=== PATIENT | female | born 1955 | race Caucasian/White ===

== ENCOUNTER → 2017-05-22 | Outpatient (REF) | payer MEDICARE, BC, OTHER ==
[2016-08-10 12:23] VITALS: BMI 18.0
[~2017-05-22] MED LIST: ACYC-50 PO; ALB0.5 INH; ALBU2.5V36 INH; AMOX775T5; AUG875 PO; BACL-1 PO; BUDE10.2 INH; CALC500T6 PO; CEFT1VIA57 IV; CHOL200074 PO; CODEINE PO; CYC10 PO; CYCL10TA29 PO; DEXA0.5E5 PO; DIA10 PO; DIA5 PO; DIAZ-308 PO; DUL30 PO; FAMO-67 PO; FENT-23 TD; FLUT16SP19 NS; GUAI1200 PO; GUALA600 PO; HYDR-3102 PO; HYDR-3724 PO; HYDR-393 PO; LACT10SO82 PO; LOR1 PO; LOR5/325 PO; LORA-1456 PO; MAGN100T PO; MEC25 PO; METH4TAB66 PO; MONT10TA PO; MULT1TAB54 PO; NAP250 PO; NAPR-723 PO; NAPR220C12 PO; NICO1PAT86 TD; NITR-105 PO; OXYC-823 PO; OXYC-827 PO; OXYC-865 PO; OXYC-869 PO; OXYC10TA67 PO; OXYC20TA99 PO; OXYC60TA PO; PER; PER PO; PHEN120S16 PO; PILO5TAB12 PO; PRED20TA6 PO; PROM-110 PO; SACC250C PO; SCOT TD; SULF-198 PO; TRAM-420 PO; TRIA15OI20 TP; VAR1 PO; VITA-324 PO; ZOLP-350 PO; [UNRECOGNIZED DRUG - CODE] PO; lidocaine patches
[2017-05-22 17:43] LABS: PLATELET COUNT, AUTOMATED 284 K/uL (150-450)
== END ==
LOC: ZZSENDIN 16:53
PROVIDERS: ATTEND Internal Medicine Infectious Disease
DX: T84.63XA Infection and inflammatory reaction due to internal fixation device of spine, initial encounter (principal)
CPT/HCPCS: 82040; 82247; 82310; 82374; 82435; 82565; 82947; 84075; 84132; 84155; 84295; 84450; 84460; 84520; 85025; 85651; 86140

== ENCOUNTER → 2017-05-25 | Outpatient (CLI) | payer MEDICARE, BC ==
[2016-08-10 12:23] VITALS: BMI 18.0
== END ==
LOC: LAB 15:57
PROVIDERS: ATTEND Emergency Medicine
DX: M85.80 Other specified disorders of bone density and structure, unspecified site (principal); E78.00 Pure hypercholesterolemia, unspecified
CPT/HCPCS: 36415; 82306; 82310; 82465; 83718; 83970; 84478

== ENCOUNTER → 2017-05-26 | Outpatient (REF) | payer MEDICARE, BC ==
[2016-08-10 12:23] VITALS: BMI 18.0
== END ==
LOC: ZZSENDIN 14:26
PROVIDERS: ATTEND Emergency Medicine
DX: R39.15 Urgency of urination (principal)
CPT/HCPCS: 81001

== ENCOUNTER → 2017-05-29 | Outpatient (REF) | payer MEDICARE, BC ==
[2016-08-10 12:23] VITALS: BMI 18.0
[2017-05-29 10:35] LABS: PLATELET COUNT, AUTOMATED 327 K/uL (150-450)
== END ==
LOC: ZZSENDIN 10:23
PROVIDERS: ATTEND Internal Medicine Infectious Disease
DX: T84.63XA Infection and inflammatory reaction due to internal fixation device of spine, initial encounter (principal); B96.89 Other specified bacterial agents as the cause of diseases classified elsewhere
CPT/HCPCS: 82040; 82247; 82310; 82374; 82435; 82565; 82947; 84075; 84132; 84155; 84295; 84450; 84460; 84520; 85025; 85651; 86140

== ENCOUNTER → 2017-06-05 | Outpatient (REF) | payer BC, MEDICARE ==
[2016-08-10 12:23] VITALS: BMI 18.0
[~2017-06-05] MED LIST changes: +ALBU8.5H IH; +UMEC1DIS INH
[2017-06-05 12:33] LABS: PLATELET COUNT, AUTOMATED 395 K/uL (150-450)
== END ==
LOC: ZZSENDIN 12:22
PROVIDERS: ATTEND Internal Medicine Infectious Disease
DX: T84.63XA Infection and inflammatory reaction due to internal fixation device of spine, initial encounter (principal)
CPT/HCPCS: 82040; 82247; 82310; 82374; 82435; 82565; 82947; 84075; 84132; 84155; 84295; 84450; 84460; 84520; 85025; 85651; 86140

== ENCOUNTER → 2017-06-12 | Outpatient (REF) | payer MEDICARE, BC ==
[2016-08-10 12:23] VITALS: BMI 18.0
[2017-06-12 19:27] LABS: PLATELET COUNT, AUTOMATED 314 K/uL (150-450)
== END ==
LOC: ZZSENDIN 18:10
PROVIDERS: ATTEND Internal Medicine
DX: R76.9 Abnormal immunological finding in serum, unspecified (principal)
CPT/HCPCS: 82040; 82247; 82310; 82374; 82435; 82565; 82784; 82947; 83883; 84075; 84132; 84155; 84165; 84295; 84450; 84460; 84520; 85025

== ENCOUNTER → 2017-06-12 | Outpatient (REF) | payer MEDICARE, BC ==
[2016-08-10 12:23] VITALS: BMI 18.0
== END ==
LOC: ZZSENDIN 18:13
PROVIDERS: ATTEND Internal Medicine Infectious Disease
DX: Z79.2 Long term (current) use of antibiotics (principal)
CPT/HCPCS: 85651; 86140

== ENCOUNTER 2017-07-10 10:18 | Outpatient (RCR) | payer OTHER, MEDICARE, BC ==
[2016-08-10 12:23] VITALS: Wt 49.3 kg
[2016-10-10 13:00] VITALS: BP 132/76
[~2017-07-10 10:18] MED LIST changes: +ALB18R INH
--- NOTE | 2017-07-11 17:59 | ONCOLOGY FOLLOW UP NOTE ---
EVENT DATE: July 10, 2017 CHIEF COMPLAINT/REASON FOR VISIT Yessica is a very pleasant 62-year-old female with multiple medical issues including severe spinal stenosis as well as an atypical infection in the spine, as well as an IgM MGUS that follows with me for this last issue. HISTORY OF PRESENT ILLNESS Yessica returns. She has severe emphysema, known spinal stenosis, and recent discovery of an infection which they believe may have been present for several years in the hardware in her spine. She has chronic pain due to her spinal issues and [facility]. They discovered an IgM MGUS which has been stable. Her IgM actually is slightly less than it was two years ago, although it is still elevated. I do believe that this is a real phenomena, as I would expect the IgM to evolve into an IgG with a typical infection. As such we will continue to follow it. We reviewed her recent surgery and discussed the importance of following up with her infectious disease doctor if she feels that she has indeed taken steps back since transitioning from IV antibiotics to p.o. antibiotics. The cost of the antibiotics is a concern as well. PAST MEDICAL HISTORY 1. IgM MGUS. 2. Emphysema. 3. Severe spinal stenosis. 4. Chronic pain due to spinal stenosis. 5. History of cellulitis. 6. History of hepatitis. 7. History of Meniere disease. 8. History of depression. PAST SURGICAL HISTORY 1. History of back surgery of the lower back. 2. History of rotator cuff repair. 3. Hernia repair. 4. History of tubal ligation. 5. History of removal of the left salivary gland, reportedly benign. 6. Cervical fusion from C4 to C7. 7. Lumbar fusion from L4 to L5 as well as from L3 to L4, as well as L5 to S1. 8. Right shoulder replacement. 9. C2-3 ablative surgery. SOCIAL HISTORY The patient is and has presented with her . They met in [place], [place], but have lived in [place] for the past twelve years. Continues to smoke a few cigarettes per week, but was a heavy smoker in the past. History of drug use, including crack cocaine, none recently. Rare marijuana use. Approximately one alcoholic beverage per day. On Disability. FAMILY HISTORY Unremarkable for this issue. Positive for hypertension, stroke, diabetes, cholesterol issues, coronary artery disease, COPD. REVIEW OF SYSTEMS CONSTITUTIONAL: No fevers or chills. Significant weight change which may have very well been due to this infection in the back. Her weight has stabilized in the last nine months. Positive fatigue. HEENT: No headache, vision changes. CARDIOVASCULAR: No chest pain, dyspnea on exertion or edema. RESPIRATORY: No shortness of breath, wheeze or cough. GASTROINTESTINAL: No nausea or vomiting. GENITOURINARY: No dysuria or hematuria. MUSCULOSKELETAL: Positive fatigue. No joint pain. PSYCHIATRIC: No anxiety or depression. The remainder of the 14-point review of systems otherwise negative. PHYSICAL EXAMINATION VITAL SIGNS: Blood pressure 148/90, pulse of 85, respiratory rate 16, temperature 96.9 Fahrenheit, oxygen saturation 94% on room air. Weight 49.3 kg. Pain 4/10, fatigue 3/10. GENERAL: Stable condition, resting comfortably in the chair. HEENT: Normocephalic, atraumatic. MUSCULOSKELETAL: Significant pain in the back from the spinal stenosis and infection. Full physical exam deferred today to amount of time spent in counseling and coordination of care, review of her notes. IMPRESSION AND PLAN Yessica is a very pleasant 62-year-old female with the followin. 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 I do believe that this is a real process even if it may be exacerbated by the infection in the spine. I do not believe that treatment would improve her significantly. If we do not get improvement with antibiotics we may need to consider intervenous immunoglobin given the low IgG. We will follow with Infectious Disease and we will see her every six months. 2. Severe spinal stenosis. 3. Chronic pain. 4. Atypical infection in the back. Appreciate the care by Infectious Disease. Answered all of her questions today. High risk, high complexity. Billing: Return visit level 4. Total time 30 minutes, counseling time 20. MTDD
== END 2017-07-14 16:09 | disposition home or self-care (01) ==
LOC: ONC 10:18
PROVIDERS: ATTEND Internal Medicine
DX: D47.2 Monoclonal gammopathy (principal); M48.00 Spinal stenosis, site unspecified; G89.29 Other chronic pain; B99.9 Unspecified infectious disease; F17.210 Nicotine dependence, cigarettes, uncomplicated; I10 Essential (primary) hypertension; E11.9 Type 2 diabetes mellitus without complications; I25.10 Atherosclerotic heart disease of native coronary artery without angina pectoris; J44.9 Chronic obstructive pulmonary disease, unspecified
CPT/HCPCS: 99212

== ENCOUNTER → 2017-07-12 | Outpatient (CLI) | payer MEDICARE, BC ==
[2016-08-10 12:23] VITALS: BMI 18.0
[2017-07-12 12:01] LABS: PLATELET COUNT, AUTOMATED 292 K/uL (150-450)
== END ==
LOC: LAB 10:28
PROVIDERS: ATTEND Emergency Medicine
DX: M54.5 Low back pain (principal)
CPT/HCPCS: 36415; 82040; 82247; 82310; 82374; 82435; 82565; 82947; 84075; 84132; 84155; 84295; 84450; 84460; 84520; 85007; 85027; 85651; 86140

== ENCOUNTER → 2017-08-08 | Outpatient (CLI) | payer MEDICARE, BC ==
[2016-08-10 12:23] VITALS: BMI 18.0
[2017-08-08 09:54] LABS: PLATELET COUNT, AUTOMATED 261 K/uL (150-450)
== END ==
LOC: LAB 09:38
PROVIDERS: ATTEND Emergency Medicine
DX: M54.5 Low back pain (principal)
CPT/HCPCS: 36415; 85025; 85651; 86140

== ENCOUNTER → 2017-08-23 | Outpatient (CLI) | payer MEDICARE, BC ==
[2016-08-10 12:23] VITALS: BMI 18.0
--- NOTE | 2017-08-23 14:54 | RADIOLOGY IMAGING REPORT ---
FACILITY: [facility] PATIENT NAME: Yessica Arredondo : 1955 MR: [id number] V: [id number] EXAM DATE: ORDERING PHYSICIAN: ASHLYN CARTER TECHNOLOGIST: Location: [facility] [place] Patient: Yessica Arredondo : 1955 Visit/Account:[id number] Date of Sevice: 08/23/2017 LUMBAR SPINE 2 OR 3 VIEW Provided history: Back pain Additional pertinent history: none Three views obtained COMPARISON STUDIES: 05/11/16 FINDINGS: Interval revision of the fusion now with elongated bilateral rods extending from T10 through S1 with pedicular screws at all levels. Additional arthrodesis across the SI joints in the interim. A prost hetic disc is been placed at L5-S1 in the interim with episcopalian of height of the disc. Prosthetic discs at L3-4 L4-5 are unchanged. Additional prosthetic discs at T12-L1 and L1-2 place in the inter im in expected position. This bone plug at L2-3 unchanged in position. Alignment normal exception o f stable minor anterolisthesis of L4 on L5. No hardware failure. There is appears to be potential retroperitoneal gas bilaterally presumably from recent postop status . IMPRESSION: Extensive revision of spinal fusion now with SI joint fusion without evidence of hardware failure and no new malalignment. Correlate potential gas in the retroperitoneum. This is considered normal i f the surgery is within the last few days to a week. Longer than a week, CT may be warranted. Report Dictated By: Teofilo Mitchell MD at 08/23/2017 2:43 PM Report E-Signed By: Teofilo Mitchell MD at 08/23/2017 2:50 PM WSN:[email or web address]
--- NOTE | 2017-08-23 15:16 | RADIOLOGY IMAGING REPORT ---
FACILITY: [facility] - [place] PATIENT NAME: Yessica Arredondo : 1955 MR: [id number] V: [id number] EXAM DATE: ORDERING PHYSICIAN: ASHLYN CARTER TECHNOLOGIST: Location: Patient: Yessica Arredondo : 1955 Visit/Account:[id number] Date of Sevice: 08/23/2017 THORACIC SPINE 2 VIEW Provided history: Back pain Additional pertinent history: none 3 views obtained COMPARISON STUDIES: Thoracic MRI 08/09/16 FINDINGS: Refer to comments made on today's lumbar spine examination. Above the T10 fusion, there is advanced disc space narrowing and moderate subchondral sclerosis at T6 -7, T7-8, T8-9 and T9-10. There are more mild changes in the upper thoracic spine. No signs of disc itis. An upper lateral view demonstrates a solid-appearing fusion at C4-5, C5-6 and C6-7 in normal alignmen t. IMPRESSION: Degenerative changes of the thoracic spine per above. Solid lower cervical fusion. Report Dictated By: Teofilo Mitchell MD at 08/23/2017 3:10 PM Report E-Signed By: Teofilo Mitchell MD at 08/23/2017 3:13 PM WSN:[email or web address]
== END ==
LOC: RAD 11:25
PROVIDERS: ATTEND Registered Nurse
DX: M47.894 Other spondylosis, thoracic region (principal); Z98.890 Other specified postprocedural states
CPT/HCPCS: 72070; 72100

== ENCOUNTER → 2017-09-07 | Outpatient (CLI) | payer MEDICARE, BC ==
[2016-08-10 12:23] VITALS: BMI 18.0
== END ==
LOC: LAB 08:54
PROVIDERS: ATTEND Emergency Medicine
DX: M54.5 Low back pain (principal)
CPT/HCPCS: 81001

== ENCOUNTER 2017-09-12 13:38 | Outpatient (RCR) | payer MEDICARE, BC ==
[2016-08-10 12:23] VITALS: BMI 18.0
[2017-09-13] MEDS ORDERED: IOPAMIDOL 76% 75 ML INFUS BTL 75 ML ONE (08:47)
--- NOTE | 2017-09-13 10:30 | RADIOLOGY IMAGING REPORT ---
FACILITY: [facility] - [place] PATIENT NAME: Yessica Arredondo : 1955 MR: [id number] V: [id number] EXAM DATE: ORDERING PHYSICIAN: KIMBERLY LY TECHNOLOGIST: [place] [facility] [place] Arredondo : 1955 Visit/Account:[id number] Date of Sevice: 09/13/2017 ABDOMEN/PELVIS W/WO CONTRAST HISTORY: Retroperitoneal air TECHNIQUE: Axial images acquired through the abdomen/pelvis both with and without IV contrast.. Margarita nal and sagittal reformatting also performed. Dose Lowering Technique One of the following dose optimization techniques was utilized in the performance of this exam: Autom ated exposure control; adjustment of the mA and/or kV according to the patient's size; or use of an i terative reconstruction technique. Specific details can be referenced in the facility's radiology C T exam operational policy. CONTRAST: 75 mL Isovue-370 COMPARISON: Lumbar spine series August 23, 2017 FINDINGS: Visualized lung bases: Pleural parenchymal scarring in the lung bases Hepatobiliary: The liver is enlarged measuring 19.2 cm in length.. There appear to be several tiny posterior layering gallstones with no evidence of biliary ductal dilatation Spleen: Negative. Adrenals: Mild thickening the adrenal glands Pancreas: Negative. Kidneys ureters and bladder: Negative. Genitalia: Atrophic uterus GI: There appears to be wall thickening about the rectum which may represent an inflammatory respons e although clinical correlation needed Vessels/spaces/nodes: There are extensive artifacts from lumbar hardware although no gross evidence of pathologically enlarged retroperitoneal lymph nodes . There are moderate vascular calcifications in the abdominal aorta and branch vessels. No evidence of retroperitoneal air Bones/soft tissues: Incompletely imaged are extensive postoperative changes from posterior interbody fusion extending from T11 to S1. Additional findings: None pertinent. IMPRESSION: No evidence of retroperitoneal air Extensive postoperative changes of the visualized thoracolumbar spine Appears to be wall thickening about the rectum which could be related to proctitis. Clinical correla tion needed Mild hepatomegaly Suggestion of tiny posterior layering gallstones Pleural parenchymal scarring in the lung bases Report Dictated By: Hilary Barrios MD at 09/13/2017 9:38 AM Report E-Signed By: Hliary Barrios MD at 09/13/2017 10:26 AM WSN:[email or web address]
== END 2017-09-13 18:00 | disposition home or self-care (01) ==
LOC: CT 13:38 → EDSTATUS 09-13 13:35 → CT 09-13 18:00
PROVIDERS: ATTEND Emergency Medicine
DX: Z01.818 Encounter for other preprocedural examination (principal); R16.2 Hepatomegaly with splenomegaly, not elsewhere classified
CPT/HCPCS: 36415; 74178; Q9967; 82040; 82247; 82310; 82374; 82435; 82565; 82947; 84075; 84132; 84155; 84295; 84450; 84460; 84520

== ENCOUNTER 2017-09-22 11:11 | Emergency (ER) | payer MEDICARE, BC ==
[2016-08-10 12:23] VITALS: Wt 47.6 kg
[2017-09-22] MEDS ORDERED: AMOX875T60 PO (11:50)
--- NOTE | 2017-09-22 12:49 | ER Report ---
History and Physical Time Seen By MD: 12:40 Hx. of Stated Complaint: pt reports chronic back pain with abd pain that started 2 days ago, getting worse (WILL JONES MD) HPI/ROS CHIEF COMPLAINT: Chronic pain; new abdominal pain HISTORY OF PRESENT ILLNESS: Patient is 62 old female who has a history of multiple back surgeries that been complicated by infection in the past. She is on chronic oral antibiotics currently on amoxicillin which she is taking as directed. She is following pain management in [place], [place]. She does have a pain management plan. Apparently she has been having worsening lower back pain that is different from her typical chronic pain and also now having radiation to the abdomen. She did have a CT scan on September 13 that was noted for wall thickening around the rectum which could be related to proctitis. She further had extensive postoperative changes to the thoracic or lumbar spine. No evidence of retroperitoneal air. She spoke with her primary care provider today secondary to her complaint of pain and was referred to the emergency department for this complaint of pain. She denies actual fever but states that she only runs "low" with her temperatures. Her usual pain management medications are not treating her discomfort. REVIEW OF SYSTEMS: Constitutional: No fever, no chills. Eyes: No discharge. ENT: No sore throat. Cardiovascular: No chest pain, no palpitations. Respiratory: No cough, no shortness of breath. Gastrointestinal: Lower bilateral abdominal pain with nausea no vomiting Genitourinary: No hematuria. Musculoskeletal: Chronic low back pain Skin: No rashes. Neurological: No headache. (WILL JONES MD) Allergies: Coded Allergies: NSAIDS (Non-Steroidal Anti-Inflamma (Verified Allergy, Severe, mouth ulcers, 09/22/17) baclofen (Verified Allergy, Severe, muscle spasms, pain, altered mental status, 09/22/17) carisoprodol (Verified Allergy, Severe, ANAPHYLACTIC, 09/22/17) celecoxib (Verified Allergy, Severe, ANAPHYLAXIS, 09/22/17) duloxetine HCl (Verified Allergy, Severe, KIDNEY IRRITATION, 09/22/17) pregabalin (Verified Allergy, Severe, ANAPHYLAXIS, 09/22/17) gabapentin (Verified Allergy, Intermediate, HALLUCINATIONS, 09/22/17) Home Meds Active Scripts Polyethylene Glycol 3350 (MIRALAX) 17 Gm Powd.pack, 17 GM PO QDAY, #7 PKT Prov:WILL JONES MD 09/22/17 Dicyclomine Hcl (DICYCLOMINE HCL) 20 Mg Tablet, 20 MG PO QID, #40 TAB 0 Refills Prov:WILL JONES MD 09/22/17 Umeclidinium Brm/Vilanterol Tr (Anoro Ellipta 62.5-25 Mcg INH) 1 Each Disk.w.dev , 1 INHALER INH DAILY, #1 MISC Prov:KIMBERLY LY MD 08/30/17 Albuterol Sulfate (VENTOLIN HFA) 18 Gm Inh, 2 PUFF INH Q4-6H, #1 INH 11 Refills Prov:KIMBERLY LY MD 06/16/17 Saccharomyces Boulardii (FLORASTOR) 250 Mg Capsule, 250 MG PO BID, #180 CAPSULE 3 Refills Prov:KIMBERLY LY MD 05/25/17 Famotidine (FAMOTIDINE) 20 Mg Tablet, 20 MG PO BID, #180 TAB 3 Refills Prov:KIMBERLY LY MD 05/25/17 Pilocarpine Hcl (PILOCARPINE HCL) 5 Mg Tablet, 10 MG PO TID, #270 TAB 3 Refills Prov:KIMBERLY LY MD 05/25/17 Reported Medications Amoxicillin (AMOXICILLIN) 875 Mg Tablet, 1 TAB PO Q12H, #10 TAB 09/22/17 Lorazepam (LORAZEPAM) 1 Mg Tab, 1 TAB PO PRN, TAB 05/25/17 Fluticasone Prop 50 Mcg Ns (FLONASE 50 MCG NS) Unknown Strength [place].susp, NS BID, BOT 05/25/17 Cyclobenzaprine Hcl (CYCLOBENZAPRINE HCL) 10 Mg Tablet, 10 MG PO QID, #9 TAB 05/25/17 Oxycodone Hcl (OXYCONTIN) 20 Mg Tab.er.12h, 1 TAB PO Q12H, TAB 05/25/17 Oxycodone Hcl 10 Mg Tab (OXYCODONE HCL 10 MG TAB) 10 Mg Tablet, 1-2 TAB PO Q4- 6H Y for PRN, TAB 05/25/17 Cholecalciferol (Vitamin D3) (VITAMIN D-3) 2,000 Unit Capsule, 2000 UNIT PO DAILY, CAPSULE 06/20/16 Vitamin B Complex (B COMPLETE) 1 Each Tablet, 1 EACH PO DAILY 06/20/16 Calcium Carbonate (CALCIUM) 500 Mg Tablet, 500 MG PO DAILY 06/20/16 Multivitamin (MULTI-VITAMIN DAILY) 1 Each Tablet, 1 EACH PO DAILY 06/20/16 Albuterol Sulfate 0.083% (ALBUTEROL SULFATE 0.083%) 2.5 Mg/3 Ml Vial.neb, 2.5 MG INH, INH 06/18/15 Discontinued Reported Medications [lidocaine patches] Unknown Strength No Conflict Check 05/25/17 Triamcinolone Acetonide 0.1% Oint 15 Gm Tube (TRIAMCINOLONE ACETONIDE 0.1% 15 GM TUBE) 15 Gm Oint...g., 1 ADRYAN TP PRN, TUBE 05/25/17 Montelukast Sodium (SINGULAIR) 10 Mg Tablet, 1 TAB PO DAILY, TAB 05/25/17 Oxycodone Hcl (OXYCONTIN) 10 Mg Tab.er.12h, 1 TAB PO Q12H, TAB 05/25/17 Past Medical/Surgical History Past medical history includes Mnire's disease, asthma, peptic ulcer disease, Candis Strohm's macroglobulinemia history of lumbar laminectomy in 2003, lumbar fusion and removal a synovial cyst L4-L5 2009, and . History of "spinal infection" 2018 currently on IV antibiotics patient smokes half pack per day. Patient is on chronic pain medication (WILL JONES MD) Hx Smoking: Yes (6) Smoking Status: Former Smoker Exposure to Second Hand Smoke?: Yes (both parents smoked) Hx Substance Use Disorder: Yes (HX OF OPIOID WITHDRAWL) Hx Alcohol Use: Yes (occ) (WILL JONES MD) Constitutional Vital Sign - Last 24 Hours 09/22/17 09/22/17 09/22/17 09/22/17 11:20 11:45 12:00 12:15 Temp 97.9 Pulse 88 97 96 Resp 18 B/P (MAP) 135/89 135/89 (104) 147/119 (128) Pulse Ox 94 96 94 O2 Delivery Room Air 09/22/17 09/22/17 09/22/17 09/22/17 12:26 12:31 12:46 13:00 Pulse 103 81 B/P (MAP) 95/62 (73) Pulse Ox 93 93 95 09/22/17 09/22/17 09/22/17/29/18 13:01 13:30 13:36 13:51 Pulse 78 74 70 B/P (MAP) 99/77 (84) Pulse Ox 94 95 94 09/22/17 09/22/17 09/22/17 09/22/17 14:00 14:06 14:21 14:26 Pulse 82 76 72 B/P (MAP) 114/79 (91) Pulse Ox 92 91 91 09/22/17 09/22/17 09/22/17 09/22/17 14:30 14:41 14:56 15:00 Pulse 75 79 B/P (MAP) 125/83 (97) 133/82 (99) Pulse Ox 92 91 09/22/17 09/22/17 09/22/17 09/22/17 15:11 15:26 15:30 15:41 Pulse 79 73 74 B/P (MAP) 133/84 (100) Pulse Ox 91 91 91 09/22/17 09/22/17 09/22/17 09/22/17 16:00 16:30 16:31 16:46 Pulse 81 77 B/P (MAP) 143/87 (105) 123/87 (99) Pulse Ox 91 91 Intake and Output 09/22/17 09/22/17 09/23/17 15:00 23:00 07:00 Intake Total 51 ml Balance 51 ml (LAURORA,RODOLFO V DO) Physical Exam General Appearance: The patient is alert, has no immediate need for airway protection and no signs of toxicity. Eyes: Pupils equal and round no pallor or injection. Her ocular muscles are intact and symmetrical ENT, Mouth: Mucous membranes are moist. Respiratory: There are no retractions, lungs are clear to auscultation. Cardiovascular: Regular rate and rhythm. Gastrointestinal: Abdomen is noted for lower abdominal discomfort. Neurological: Patient is able to ambulate, GCS is 15 Skin: Warm and dry, no rashes. Musculoskeletal: Neck is supple non tender. Patient has extensive scar to the low back which is well-healed. Extremities are nontender, nonswollen and have full range of motion. (WILL JONES MD) Medical Decision Making Data Points Result Diagram: 09/22/17 1344 09/22/17 1344 Laboratory Hematology Test 09/22/17 13:13 6/29/18 13:44 Urine Color Yellow Urine Clarity Clear Urine pH 5.0 pH (4.8-9.5) Urine Specific Dillon 1.008 Urine Protein Negative mg/dL (NEGATIVE) Urine Glucose (UA) Negative mg/dL (NEGATIVE) Urine Ketones Negative mg/dL (NEGATIVE) Urine Blood Negative (NEGATIVE) Urine Nitrite Negative (NEGATIVE) Urine Bilirubin Negative (NEGATIVE) Urine Urobilinogen Negative mg/dL (0.2-1.9) Urine Leukocyte Esterase Negative (NEGATIVE) Urine RBC None /HPF (0-2/HPF) Urine WBC 2 /HPF (0-5/HPF) Urine Squamous Epithelial Cells Many /LPF (</=FEW) Urine Bacteria Negative /HPF (NONE-FEW) Urine Mucus None /HPF (NONE-FEW) Red Blood Count 4.41 M/uL (4.17-5.56) Mean Corpuscular Volume 92.9 fL (80.0-96.0) Mean Corpuscular Hemoglobin 31.5 pg (26.0-33.0) Mean Corpuscular Hemoglobin Concent 33.9 g/dL (32.0-36.0) Red Cell Distribution Width 16.6 % (11.5-14.5) Mean Platelet Volume 7.0 fL (7.2-11.1) Neutrophils (%) (Auto) 62.2 % (39.4-72.5) Lymphocytes (%) (Auto) 27.0 % (17.6-49.6) Monocytes (%) (Auto) 9.5 % (4.1-12.4) Eosinophils (%) (Auto) 0.7 % (0.4-6.7) Basophils (%) (Auto) 0.6 % (0.3-1.4) Nucleated RBC Relative Count (auto) 0.1 /100WBC Neutrophils # (Auto) 3.7 K/uL (2.0-7.4) Lymphocytes # (Auto) 1.6 K/uL (1.3-3.6) Monocytes # (Auto) 0.6 K/uL (0.3-1.0) Eosinophils # (Auto) 0.0 K/uL (0.0-0.5) Basophils # (Auto) 0.0 K/uL (0.0-0.1) Nucleated RBC Absolute Count (auto) 0.01 K/uL Peripheral Blood Smear No Y/N Sodium Level 135 mmol/L (137-145) Potassium Level 4.2 mmol/L (3.5-5.0) Chloride Level 103 mmol/L (98-107) Carbon Dioxide Level 22 mmol/L (22-31) Blood Urea Nitrogen 12 mg/dl (7-18) Creatinine 0.80 mg/dl (0.52-1.04) Glomerular Filtration Rate Calc > 60.0 Random Glucose 94 mg/dl (75-110) Calcium Level 9.4 mg/dl (8.4-10.2) Total Bilirubin 0.5 mg/dl (0.2-1.3) Aspartate Amino Transf (AST/SGOT) 29 U/L (0-35) Alanine Aminotransferase (ALT/SGPT) 25 U/L (0-56) Alkaline Phosphatase 74 U/L (0-126) Total Protein 6.7 g/dl (6.3-8.2) Albumin 3.9 g/dl (3.5-5.0) Lipase 33 U/L (23-300) Helicobacter pylori IgG Antibody Negative (NEGATIVE) Chemistry Test 09/22/17 13:13 09/22/17 13:44 Urine Color Yellow Urine Clarity Clear Urine pH 5.0 pH (4.8-9.5) Urine Specific Dillon 1.008 Urine Protein Negative mg/dL (NEGATIVE) Urine Glucose (UA) Negative mg/dL (NEGATIVE) Urine Ketones Negative mg/dL (NEGATIVE) Urine Blood Negative (NEGATIVE) Urine Nitrite Negative (NEGATIVE) Urine Bilirubin Negative (NEGATIVE) Urine Urobilinogen Negative mg/dL (0.2-1.9) Urine Leukocyte Esterase Negative (NEGATIVE) Urine RBC None /HPF (0-2/HPF) Urine WBC 2 /HPF (0-5/HPF) Urine Squamous Epithelial Cells Many /LPF (</=FEW) Urine Bacteria Negative /HPF (NONE-FEW) Urine Mucus None /HPF (NONE-FEW) White Blood Count 5.9 k/uL (4.5-11.0) Red Blood Count 4.41 M/uL (4.17-5.56) Hemoglobin 13.9 g/dL (12.0-16.0) Hematocrit 41.0 % (34.0-47.0) Mean Corpuscular Volume 92.9 fL (80.0-96.0) Mean Corpuscular Hemoglobin 31.5 pg (26.0-33.0) Mean Corpuscular Hemoglobin Concent 33.9 g/dL (32.0-36.0) Red Cell Distribution Width 16.6 % (11.5-14.5) Platelet Count 220 K/uL (150-450) Mean Platelet Volume 7.0 fL (7.2-11.1) Neutrophils (%) (Auto) 62.2 % (39.4-72.5) Lymphocytes (%) (Auto) 27.0 % (17.6-49.6) Monocytes (%) (Auto) 9.5 % (4.1-12.4) Eosinophils (%) (Auto) 0.7 % (0.4-6.7) Basophils (%) (Auto) 0.6 % (0.3-1.4) Nucleated RBC Relative Count (auto) 0.1 /100WBC Neutrophils # (Auto) 3.7 K/uL (2.0-7.4) Lymphocytes # (Auto) 1.6 K/uL (1.3-3.6) Monocytes # (Auto) 0.6 K/uL (0.3-1.0) Eosinophils # (Auto) 0.0 K/uL (0.0-0.5) Basophils # (Auto) 0.0 K/uL (0.0-0.1) Nucleated RBC Absolute Count (auto) 0.01 K/uL Peripheral Blood Smear No Y/N Glomerular Filtration Rate Calc > 60.0 Calcium Level 9.4 mg/dl (8.4-10.2) Total Bilirubin 0.5 mg/dl (0.2-1.3) Aspartate Amino Transf (AST/SGOT) 29 U/L (0-35) Alanine Aminotransferase (ALT/SGPT) 25 U/L (0-56) Alkaline Phosphatase 74 U/L (0-126) Total Protein 6.7 g/dl (6.3-8.2) Albumin 3.9 g/dl (3.5-5.0) Lipase 33 U/L (23-300) Helicobacter pylori IgG Antibody Negative (NEGATIVE) Urinalysis Test 09/22/17 13:13 Urine Color Yellow Urine Clarity Clear Urine pH 5.0 pH (4.8-9.5) Urine Specific Dillon 1.008 Urine Protein Negative mg/dL (NEGATIVE) Urine Glucose (UA) Negative mg/dL (NEGATIVE) Urine Ketones Negative mg/dL (NEGATIVE) Urine Blood Negative (NEGATIVE) Urine Nitrite Negative (NEGATIVE) Urine Bilirubin Negative (NEGATIVE) Urine Urobilinogen Negative mg/dL (0.2-1.9) Urine Leukocyte Esterase Negative (NEGATIVE) Urine RBC None /HPF (0-2/HPF) Urine WBC 2 /HPF (0-5/HPF) Urine Squamous Epithelial Cells Many /LPF (</=FEW) Urine Bacteria Negative /HPF (NONE-FEW) Urine Mucus None /HPF (NONE-FEW) (RODOLFO DOTY DO) EKG/Imaging EKG Interpretation EKG shows normal sinus rhythm with normal QTc interval. (WILL JONES MD) ED Course/Re-evaluation Clinical Indication for ER IV: Hydration, IV Access ED Course 09/22/2017 1:46:16 pm plan at this time will be abdominal workup including a repeat CT scan of the abdomen and pelvis with IV contrast. We will give pain medication by giving 1 mg of Dilaudid over 1 hour we'll also give Zofran and Bentyl. I performed a review of the [facility] prescription database and could find no contacts for this patient in either database using her current name and date of . I did call and speak with the bilingual office assistant for Dr. Ct Bui who is a physiatry wrist in [facility]. She currently manages the patient's chronic pain. There for process was that she may have opiate-induced constipation and still pending her blood work and CT scan at this point. I was unable to find a drug database on the patient's surgeon both [facility] however Dr. Bui's bilingual office assistant will be faxing a medication list that is current as of September 06. 09/22/2017 2:30:19 pm patient states symptoms are improving with current medical treatment. Blood work looks normal awaiting results of CT scan. A CT scan is unremarkable plan will be to discharge the patient home on Bentyl and MiraLAX which was a suggestion from Dr. Tucker's office. Have patient continue her current outpatient medications. Decision to Disposition Date: Sep 22, 2017 Decision to Disposition Time: 17:00 (WILL JONES MD) ED Course 09/22/2017 3:37:[address] shows questionable common bile duct on CT and gallstones. Pt liver enzymes are stable. It was recommended to obtain US and pt is agreeable. 09/22/2017 5:10:[address] Corcoran in evaluation of pts US results. He feels with normal LFTs and bili it is safe to sent pt home. He will have his nurse call her on monday to schedule and outpt MRCP to be completed prior to her already scheduled appt with him on October 03. Pt is fine with that current plan and is feeling improved with the bentyl. Decision to Disposition Date: Sep 22, 2017 Decision to Disposition Time: 17:11 (RODOLFO DOTY DO) Depart Departure Latest Vital Signs Vital Signs Date Time Temp Pulse Resp B/P (MAP) Pulse Ox O2 Delivery O2 Flow Rate FiO2 09/22/17 16:46 77 91 09/22/17 16:30 123/87 (99) 09/22/17 11:20 97.9 18 Room Air (RODOLFO DOTY DO) Impression: Primary Impression: Chronic low back pain Additional Impression: Gall bladder stones Condition: Improved Disposition: HOME OR SELF-CARE Referrals: KIMBERLY LY MD (PCP) JAH LEARY MD New Scripts Polyethylene Glycol 3350 (MIRALAX) 17 Gm Powd.pack 17 GM PO QDAY, #7 PKT Prov: WILL JONES MD 09/22/17 Dicyclomine Hcl (DICYCLOMINE HCL) 20 Mg Tablet 20 MG PO QID, #40 TAB 0 Refills Prov: WILL JONES MD 09/22/17 Patient Instructions: Gallstones (GEN) Additional Instructions: Your ultrasound and cat scan do show some stones in your gallbladder. I spoke with Dr. Leary and he will have his office call you on Monday to schedule another imaging of your gallbladder called MRCP. This study looks closer at the common bile duct to make sure no stone is stuck in that location causing pain. Keep your appointment on October 03 for follow up of your MRCP and to discuss causes of your pain. Bentyl one every 6 hours can be used for abdominal spasms/pain Miralax use daily for constipation. Return as needed. Problem Qualifiers Primary Impression: Chronic low back pain Back pain laterality: bilateral Sciatica presence: unspecified whether sciatica present Qualified Codes: M54.5 - Low back pain; G89.29 - Other chronic pain WILL JONES MD Sep 22, 2017 12:49 RODOLFO DOTY DO Sep 22, 2017 15:39
[2017-09-22] MEDS ORDERED: HYDROmorphone* 1 MG/ML 1 MG/ML ML IVP ONE (13:00)
[2017-09-22] MEDS ORDERED: ONDANSETRON 4 MG/2 ML VIAL IVP ONE (13:00)
[2017-09-22] MEDS ORDERED: NS(*) 0.9% 500 ML BAG 500 ML IV ONE (13:00)
[2017-09-22] MEDS ORDERED: DICYCLOMINE HCL 10 MG CAP PO ONE (13:00)
[2017-09-22] MEDS ORDERED: IOPAMIDOL 76% 100 ML INFUS BTL 0 ML ONE (13:24)
[2017-09-22] MEDS ORDERED: IOPAMIDOL 76% 50 ML INFUS BTL 50 ML ONE (13:28)
[2017-09-22] MEDS ORDERED: NS 0.9% IVPB ONE (13:30)
[2017-09-22] MEDS ORDERED: NS 0.9% IVP ONE (13:30)
[2017-09-22] MEDS ORDERED: HYDROMORPHONE IVPB ONE (13:30)
[2017-09-22] MEDS ORDERED: HYDROMORPHONE IVP ONE (13:30)
[2017-09-22 13:58] LABS: PLATELET COUNT, AUTOMATED 220 K/uL (150-450)
--- NOTE | 2017-09-22 14:19 | EKG ---
FACILITY: [facility] - [place], [place] PATIENT NAME: ELIZA MISTRY : [id number] MR: [id number] V: [id number] EXAM DATE: ORDERING PHYSICIAN: WILL JONES TECHNOLOGIST: EDWARD Test Reason : STOMACH PAIN Blood Pressure : / mmHG Vent. Rate : 078 BPM Atrial Rate : 078 BPM P-R Int : 140 ms QRS Dur : 078 ms QT Int : 362 ms P-R-T Axes : 072 041 070 degrees QTc Int : 412 ms Sinus rhythm No acute appearing findings Confirmed by MECHE HARRISON ([id number]) on 09/22/2017 4:20:46 PM Referred By: KAREN Confirmed By:MECHE HARRISON
[2017-09-22] MEDS ORDERED: POLY17PO25 PO (14:26)
[2017-09-22] MEDS ORDERED: DICY20TA70 PO (14:26)
--- NOTE | 2017-09-22 15:27 | RADIOLOGY IMAGING REPORT ---
FACILITY: [facility] PATIENT NAME: Yessica Arerdondo : 1955 MR: [id number] V: [id number] EXAM DATE: ORDERING PHYSICIAN: WILL JONES TECHNOLOGIST: Location: [facility] Patient: Yessica Arredondo : 1955 Visit/Account:[id number] Date of Sevice: 09/22/2017 ABDOMEN/PELVIS WITH CONTRAST HISTORY: Lower abdomen pain TECHNIQUE: Following administration of IV contrast contiguous axial images acquired through the abdom en/pelvis. Coronal and sagittal reformatting also performed. Dose Lowering Technique One of the following dose optimization techniques was utilized in the performance of this exam: Autom ated exposure control; adjustment of the mA and/or kV according to the patient's size; or use of an i terative reconstruction technique. Specific details can be referenced in the facility's radiology C T exam operational policy. CONTRAST: 50 mL Isovue-370 COMPARISON: September 13, 2017 FINDINGS: Visualized lung bases: Pleural parenchymal scarring in the lung bases Hepatobiliary: Again noted is hepatomegaly and gallstones. The common bile duct now appears dilated measuring up to 1.1 cm in diameter. There is mild intrahepatic ductal dilatation Spleen: Negative. Adrenals: Mild thickening the adrenal glands Pancreas: Negative. Kidneys ureters or bladder: Negative. Genitalia: Atrophic uterus GI: There appears to be less wall thickening of the rectum when compared the prior study. Vessels/spaces/nodes: There are extensive artifacts from lumbar hardware as previously noted althoug h no gross evidence of pathologically enlarged retroperitoneal lymph nodes,. Moderate vascular calci fications are noted Bones/soft tissues: Incompletely imaged are extensive postoperative changes throughout the thoracolu mbar spine as previously described. Additional findings: None pertinent. IMPRESSION: Hepatomegaly Gallstones The common bile duct now appears dilated measuring up to 1.1 cm in diameter. There is mild intrahepa tic ductal dilatation. Further evaluation with ultrasound is recommended Additional chronic findings as described Report Dictated By: Hilary Barrios MD at 09/22/2017 2:31 PM Report E-Signed By: Hilary Barrios MD at 09/22/2017 3:22 PM WSN:[email or web address]
--- NOTE | 2017-09-22 16:49 | RADIOLOGY IMAGING REPORT ---
FACILITY: [facility] - [place] PATIENT NAME: Yessica Arredondo : 1955 MR: [id number] V: [id number] EXAM DATE: ORDERING PHYSICIAN: RODOLFO DOTY TECHNOLOGIST: Location: [facility] Patient: Yessica Arredondo : 1955 Visit/Account:[id number] Date of Sevice: 09/22/2017 EXAMINATION: Right upper quadrant abdominal ultrasound HISTORY: Abdominal pain. COMPARISON: CT abdomen/pelvis performed today. FINDINGS: Liver: Normal hepatic echotexture. No focal liver lesions identified. Antegrade flow is visualized in the main portal vein. Gallbladder: The gallbladder is mildly distended. There is some nonshadowing echogenic material laye ring in the dependent aspect of the gallbladder which may represent sludge and/or small sand-like sto kassandra. No gallbladder wall thickening or pericholecystic fluid. The core assembly supervisor indicated a positive so nographic Talbert sign. Bile Ducts: The segmentally visualized common bile duct is dilated up to 10 mm. No intrahepatic ducta l dilatation. Pancreas: The head and body of the pancreas are moderately well visualized and unremarkable where se en. Right kidney: Normal echogenicity of the right kidney. The renal cortical parenchyma is maintained. N o hydronephrosis. The right kidney measures 9.3 cm in length. Aorta: Patent and normal in caliber. IVC: Patent. Ascites: None. IMPRESSION: 1. The gallbladder contains some sludge and possible small snadlike stones without any dominant shado wing calculus. Otherwise normal ultrasound appearance of the gallbladder, but with a reported positiv e sonographic Talbert sign. This should be correlated with other clinical and/or laboratory evidence f or cholecystitis. 2. The common bile duct is dilated up to 10 mm, without evidence of intrahepatic ductal dilatation. I f clinically indicated, follow-up MRCP could be performed to assess for intraductal calculus. 3. Exam otherwise unremarkable. Report Dictated By: Saji Bledsoe MD at 09/22/2017 4:38 PM Report E-Signed By: Saji Bledsoe MD at 09/22/2017 4:45 PM WSN:[id number]
[2017-09-22 17:18] VITALS: BP 140/91
== END 2017-09-22 17:23 | disposition home or self-care (01) ==
LOC: ER 11:30
DX: M54.5 Low back pain (principal); G89.29 Other chronic pain; K80.80 Other cholelithiasis without obstruction
CPT/HCPCS: 36415; 74177; 76705; 81001; 83690; 85025; 86677; 93005; 96365; 96375; 99284; A9270; J1170; J2405; J7050; Q9967; 82040; 82247; 82310; 82374; 82435; 82565; 82947; 84075; 84132; 84155; 84295; 84450; 84460; 84520

== ENCOUNTER → 2017-09-28 | Outpatient (CLI) | payer MEDICARE, BC ==
[2016-08-10 12:23] VITALS: BMI 18.0
[~2017-09-28] MED LIST changes: +AMOX875T60 PO; +DICY20TA70 PO; +GADOBENATE 529MG/1ML 15ML VIAL IVP ONE; +NS 0.9% 20 ML SDV 40 ML ONE; +POLY17PO25 PO
--- NOTE | 2017-09-28 11:50 | RADIOLOGY IMAGING REPORT ---
FACILITY: [facility] [place] PATIENT NAME: Yessica Arredondo : 1955 MR: [id number] V: [id number] EXAM DATE: ORDERING PHYSICIAN: JAH LEARY TECHNOLOGIST: Location: [facility] [place] Patient: Yessica Arredondo : 1955 Visit/Account:[id number] Date of Sevice: 09/28/2017 ABDOMEN W W/O CONTRAST Provided history: Common bile duct dilation and CT Additional pertinent history: none TECHNIQUE: Multi-planar and multi-sequence imaging of the abdomen was performed without and with int ravenous contrast. Contrast dose: 10 mL Multihance intravenously . Additional focused sequences: Thin section and thick slab MRCP in the axial and coronal planes. COMPARISON STUDIES: CT 09/22/17 FINDINGS: Lower chest: Negative Liver/biliary: The right lobe extends into the mid pelvis, a benign Norberto's lobe but overall. In the appearance of moderate hepatomegaly. Maximal elongation up to 20.4 cm. Surface is smooth. There is n o focal hepatic lesion. Tiny layering calcified stones the gallbladder on the CT correlate with hypointensities on the T2 david ghted MRI. There is no wall thickening or surrounding fluid. Mild dilation of the central intrahepati c bile ducts on the CT has resolved. Mild prominence of the common bile duct has also resolved. Curre ntly, maximal common duct diameter is only 5 mm. No filling defect or obstructing mass visualized. Pancreas: Negative Spleen: Negative Adrenal glands: Negative Kidneys/proximal ureter/retroperitoneum: Negative Bowel/peritoneum/mesenteries: Negative Vessels: Negative Musculoskeletal/body wall: Multilevel thoracolumbar posterior interbody fusion creates moderate artif act obscuring bone detail. Lymph nodes: negative IMPRESSION: 1. Tiny stones layering dependently in the gallbladder, correlating with CT. Interim resolution of mi ld bowel dilation I presume from recent passage of a stone. 2. Mild hepatomegaly without focal lesion and without signs of cirrhosis or significant hepatic steat osis. Report Dictated By: Teofilo Mitchell MD at 09/28/2017 11:39 AM Report E-Signed By: Teoiflo Mitchell MD at 09/28/2017 11:47 AM WSN:[id number]
== END ==
LOC: MRI 03:05
PROVIDERS: ATTEND Surgery
DX: K83.8 Other specified diseases of biliary tract (principal); R16.0 Hepatomegaly, not elsewhere classified
CPT/HCPCS: 74183; A9577; J7050

== ENCOUNTER → 2017-10-16 | Outpatient (CLI) | payer MEDICARE, BC ==
[2016-08-10 12:23] VITALS: BMI 18.0
[~2017-10-16] MED LIST changes: -GADOBENATE 529MG/1ML 15ML VIAL IVP ONE; +MIRT-1 PO; -NS 0.9% 20 ML SDV 40 ML ONE
== END ==
LOC: LAB 09:22
PROVIDERS: ATTEND Emergency Medicine
DX: F32.9 Major depressive disorder, single episode, unspecified (principal)
CPT/HCPCS: 36415; 82607; 84443

== ENCOUNTER 2017-11-29 00:20 | Day surgery (SDC) | payer MEDICARE, BC ==
[2016-08-10 12:23] VITALS: Ht 162.6 cm; Wt 44.9 kg
[~2017-11-29] VITALS: Ht 162.6 cm; Wt 44.9 kg
[~2017-11-29 00:20] MED LIST changes: +GUAI600T57 PO; +TIZA-128 PO
[2017-11-29 06:41] VITALS: BP 136/83
[2017-11-29] MEDS ORDERED: PROPOFOL EMUL(*) 10MG/ML 20 ML 20 ML ONE ×2 (07:07→07:43)
[2017-11-29] MEDS ORDERED: NORMOSOL R SOLN(*) 1000 ML BAG 1,000 ML IV PRN (07:10)
[2017-11-29] MEDS ORDERED: LIDOCAINE/SOD BICARB 8.4% SYR ID ONE (07:10)
[2017-11-29 08:12] VITALS: BP 109/64
--- NOTE | 2017-11-29 08:16 | Short(Outpt) Discharge Summary ---
Discharge Summary Reason for Hosp/Final Diag: (1) History of colon polyps Status: Chronic Hospital Course & Plan: Colonoscopy completed without problems. Poor prep, will need to repeat in the next year with better prep. No proctitis. (2) Proctitis Status: Chronic Departure Discharge to: Home, Self Care Discharge Instructions Home Meds Active Scripts Umeclidinium Brm/Vilanterol Tr (Anoro Ellipta 62.5-25 Mcg INH) 1 Each Disk.w.dev, 1 INHALER INH DAILY for 90 Days, #3 MISC 4 Refills Prov:KIMBERLY LY MD 09/29/17 Polyethylene Glycol 3350 (MIRALAX) 17 Gm Powd.pack, 17 GM PO QDAY, #7 PKT Prov:WILL JONES MD 09/22/17 Albuterol Sulfate (VENTOLIN HFA) 18 Gm Inh, 2 PUFF INH Q4-6H, #1 INH 11 Refills Prov:KIMBERLY LY MD 06/16/17 Saccharomyces Boulardii (FLORASTOR) 250 Mg Capsule, 250 MG PO BID, #180 CAPSULE 3 Refills Prov:KIMBERLY LY MD 05/25/17 Famotidine (FAMOTIDINE) 20 Mg Tablet, 20 MG PO BID, #180 TAB 3 Refills Prov:KIMBERLY LY MD 05/25/17 Reported Medications Tizanidine Hcl (TIZANIDINE HCL) 4 Mg Tablet, 4 MG PO TID 11/16/17 Guaifenesin (MUCINEX) 600 Mg Tablet.er, 600 MG PO DAILY 11/16/17 Lorazepam (LORAZEPAM) 1 Mg Tab, 1 TAB PO PRN, TAB 05/25/17 Fluticasone Prop 50 Mcg Ns (FLONASE 50 MCG NS) Unknown Strength [place].susp, NS BID, BOT 05/25/17 Cyclobenzaprine Hcl (CYCLOBENZAPRINE HCL) 10 Mg Tablet, 10 MG PO QID, #9 TAB 05/25/17 Oxycodone Hcl (OXYCONTIN) 20 Mg Tab.er.12h, 1 TAB PO Q12H, TAB 05/25/17 Oxycodone Hcl 10 Mg Tab (OXYCODONE HCL 10 MG TAB) 10 Mg Tablet, 1-2 TAB PO Q4-6H PRN for PRN, TAB 05/25/17 Cholecalciferol (Vitamin D3) (VITAMIN D-3) 2,000 Unit Capsule, 2000 UNIT PO DAILY, CAPSULE 06/20/16 Vitamin B Complex (B COMPLETE) 1 Each Tablet, 1 EACH PO DAILY 06/20/16 Calcium Carbonate (CALCIUM) 500 Mg Tablet, 500 MG PO DAILY 06/20/16 Multivitamin (MULTI-VITAMIN DAILY) 1 Each Tablet, 1 EACH PO DAILY 06/20/16 Albuterol Sulfate 0.083% (ALBUTEROL SULFATE 0.083%) 2.5 Mg/3 Ml Vial.neb, 2.5 MG INH, INH 06/18/15 Discontinued Reported Medications Amoxicillin (AMOXICILLIN) 875 Mg Tablet, 1 TAB PO Q12H, #10 TAB 09/22/17 Diet: Regular Activity: As Tolerated Special Instructions: Your colonoscopy was completed without any problems. Unfortunately, your prep was not very good and so I couldn't adequately evaluate significant portions of your colon due to liquid and solid stool in the way. I didn't see any inflammation in your rectum. I recommend that you have another colonoscopy with a different prep within the next year to get you caught up on colorectal cancer screening. JAH LEARY MD Nov 29, 2017 08:16
[2017-11-29 08:30] VITALS: BP 141/62
[2017-11-29 08:34] VITALS: BP 131/78
== END 2017-11-29 09:00 | disposition home or self-care (01) ==
LOC: OR 00:20
PROVIDERS: ATTEND Surgery
DX: K62.89 Other specified diseases of anus and rectum (principal); R93.3 Abnormal findings on diagnostic imaging of other parts of digestive tract; Z86.010 Personal history of colon polyps
CPT/HCPCS: 00811; 45378; J2704

== ENCOUNTER → 2017-11-30 | Outpatient (CLI) | payer OTHER, MEDICARE, BC ==
[2016-08-10 12:23] VITALS: BMI 18.0
--- NOTE | 2017-11-30 15:18 | RADIOLOGY IMAGING REPORT ---
FACILITY: [facility] PATIENT NAME: Yessica Arredondo : 1955 MR: [id number] V: [id number] EXAM DATE: ORDERING PHYSICIAN: ALEK CHAN TECHNOLOGIST: [place] [facility] [place]essica Arredondo : 1955 Visit/Account:[id number] Date of Sevice: 11/30/2017 C SPINE W/O CONTRAST COMPARISON: None Additional pertinent history: Headaches and numbness with history of surgeries involving the neck. Technique: Multiplanar multisequence cervical spine MRI was performed without gadolinium enhancement. FINDINGS: Postoperative changes: Patient status post previous anterior interbody fusion of C4-C7. Vertebral body height and alignment: Straightening of normal cervical lordosis centered at C5-C6. Vertebral marrow signal: Type one degenerative endplate changes at T1-T2. Vertebral bodies: Negative Cervical spinal cord signal, craniocervical junction and visualized posterior fossa: Negative Surrounding soft tissues: Negative Inspection of the disc spaces reveal the following: C1-C2: Negative C2-C3: Facet hypertrophic changes right greater than left. No significant disc bulge or disc protrusi on. Mild right-sided neural foraminal narrowing. No significant left-sided neural foraminal narrowing . No canal stenosis. C3-C4: Circumferential disc bulging with facet and uncovertebral degenerative changes. Moderate right -sided neural foraminal narrowing. Mild left-sided neural foraminal narrowing. No canal stenosis. C4-C5: Postoperative changes with facet hypertrophic changes. Moderate left-sided neural foraminal na rrowing. No significant right-sided neural foraminal narrowing. No canal stenosis. C5-C6: Postoperative changes with facet hypertrophic changes. Superimposed right neural foraminal dis c extrusion. Severe right-sided neural foraminal narrowing. Mild left-sided neural foraminal narrowin g. No canal stenosis. C6-C7: Postoperative changes with facet hypertrophic changes. No significant canal or neural foramina l narrowing. C7-T1: Negative Impression: 1. Postoperative and spondylitic change as discussed above. 2. Multilevel neural foraminal narrowing as detailed above. 3. No underlying canal stenosis. Report Dictated By: Syd Avila MD at 11/30/2017 3:10 PM Report E-Signed By: Syd Avila MD at 11/30/2017 3:15 PM WSN:[email or web address]
== END ==
LOC: MRI 01:42
PROVIDERS: ATTEND Physical Medicine & Rehabilitation Pain Medicine
DX: M47.892 Other spondylosis, cervical region (principal); Z98.890 Other specified postprocedural states
CPT/HCPCS: 72141

== ENCOUNTER 2017-12-05 09:00 | Outpatient (RCR) | payer MEDICARE, BC ==
[2016-08-10 12:23] VITALS: BMI 18.0
[~2017-12-05 09:00] MED LIST changes: -CEFT1VIA57 IV; +CEFT1VIA63 IV
[2018-01-04] MEDS ORDERED: PNEI IM (13:29)
== END 2018-01-15 ==
LOC: CARD 09:00
PROVIDERS: ATTEND Emergency Medicine
DX: J44.9 Chronic obstructive pulmonary disease, unspecified (principal)
CPT/HCPCS: G0424 ×7

== ENCOUNTER 2018-01-01 12:30 | Outpatient (RCR) | payer OTHER, MEDICARE, BC ==
[2016-08-10 12:23] VITALS: Wt 47.7 kg
[2017-12-25 13:16] VITALS: BP 141/88
[2017-12-25 13:23] LABS: PLATELET COUNT, AUTOMATED 270 K/uL (150-450)
[2018-01-01 12:32] VITALS: BP 130/82
[2018-01-01] MEDS ORDERED: INFLUENZA VIRUS VAC 0.5ML SYR IM ONLY ONE (13:00)
[2018-01-04] MEDS ORDERED: PNEI IM (13:29)
[2018-01-08] MEDS ORDERED: GADOBENATE 529MG/1ML 10ML VIAL IVP ONE (16:10)
--- NOTE | 2018-01-16 05:09 | SCHUSTER ONCOLOGY NOTE ---
EVENT DATE: January 01, 2018 CHIEF COMPLAINT/REASON FOR VISIT Ms. Fallon Chambers is a pleasant 62-year-old female with a history of multiple issues including an IgM MGUS, who follows with me for that last issue. HISTORY OF PRESENT ILLNESS Yessica returns. She has severe emphysema, severe spinal stenosis, and a recent infection in the hardware of her spine. She has chronic pain and follows at the pain clinic. She has an IgM MGUS which has been stable. I do believe this is a real phenomenon, but it is not changing significantly. Overall, she feels stable. She feels better than when I saw her in the spring, thankfully. Her weight is slightly down from before, and she has continued to struggle with her many chronic issues outlined below. PAST MEDICAL HISTORY 1. IgM MGUS. 2. Emphysema. 3. Severe spinal stenosis. 4. Chronic pain due to spinal stenosis. 5. History of cellulitis. 6. History of hepatitis. 7. History of Meniere disease. 8. History of depression. PAST SURGICAL HISTORY 1. History of back surgery of the lower back. 2. History of rotator cuff repair. 3. Hernia repair. 4. History of tubal ligation. 5. History of removal of the left salivary gland, reportedly benign. 6. Cervical fusion from C4 to C7. 7. Lumbar fusion from L4 to L5 as well as from L3 to L4, as well as L5 to S1. 8. Right shoulder replacement. 9. C2-C3 ablative surgery. SOCIAL HISTORY The patient is and has presented with her . They met in [place], [place], but have lived in [place] for the past twelve years. Continues to smoke a few cigarettes per week, but was a heavy smoker in the past. History of drug use, including crack cocaine, none recently. Rare marijuana use. Approximately one alcoholic beverage per day. On disability. FAMILY HISTORY Unremarkable for this issue. Positive for hypertension, stroke, diabetes, cholesterol issues, coronary artery disease, COPD. REVIEW OF SYSTEMS CONSTITUTIONAL: No fevers or chills. She has lost quite a bit of weight in the past few years, but it has been stable recently. Positive continued fatigue and chronic pain. HEENT: No headache or vision changes. CARDIOVASCULAR: No chest pain or dyspnea on exertion. RESPIRATORY: No shortness of breath, wheeze or cough. GASTROINTESTINAL: No nausea or vomiting. GENITOURINARY: No dysuria or hematuria. MUSCULOSKELETAL: No weakness or joint pain. Positive fatigue. The remainder of the 14-point review of systems is otherwise negative. PHYSICAL EXAMINATION VITAL SIGNS: Blood pressure 130/82, pulse 91, respiratory rate 16, temperature 97.6 Fahrenheit, oxygen saturation 90% on room air. Weight 47.7 kg. Pain 7/10, fatigue 4/10. GENERAL: Stable condition, resting comfortably in the chair. HEENT: Normocephalic, atraumatic. Thin, chronically ill appearing. MUSCULOSKELETAL: Continued pain from the spinal stenosis. Full physical exam deferred today due to amount of time spent in counseling and coordination of care. IMPRESSION/PLAN Yessica is a very pleasant 62-year-old female with the followin. 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 She does not yet have Waldenstrm's, though. This may be exacerbated by the infection history in the spine, but I do believe it needs to be followed every six to 12 months. No new issues today. 2. Severe spinal stenosis. 3. Chronic pain. 4. Atypical infection in the back. Answered all of her questions today. BILLING Return visit level 4. Total time 30 minutes, counseling time 20. MTDD
== END 2018-01-24 09:59 | disposition home or self-care (01) ==
LOC: ONC 12:30
PROVIDERS: ATTEND Internal Medicine
DX: R76.9 Abnormal immunological finding in serum, unspecified (principal); Z23 Encounter for immunization
CPT/HCPCS: 36415; 82040; 82247; 82310; 82374; 82435; 82565; 82784; 82947; 83883; 84075; 84132; 84155; 84165; 84295; 84450; 84460; 84520; 85025; 85651; 86140; 90471; 90674; 99212; A9577

== ENCOUNTER 2018-01-04 17:47 | Emergency (ER) | payer MEDICARE, BC ==
[2016-08-10 12:23] VITALS: Wt 47.6 kg
--- NOTE | 2018-01-04 17:57 | ER Report ---
History and Physical Time Seen By MD: 17:56 Hx. of Stated Complaint: RIGHT ARM PAIN FOLLOWING [id number] TODAY. HPI/ROS CHIEF COMPLAINT: Right shoulder pain HISTORY OF PRESENT ILLNESS: 62-year-old female with chronic pain syndrome on opiates. Patient received Prevnar 23. Pneumovax to her right shoulder earlier today. She now notes severe sharp, burning, throbbing pain radiating from her right neck down her right arm to her elbow. She is unable to control the pain with her pain medicine. Patient has an allergy to NSAIDs is unable to take them. Patient notes mild shortness of breath. She notes no fever, no chest pain. She notes no diaphoresis. She denies nausea. REVIEW OF SYSTEMS: Respiratory: No cough, no dyspnea. Cardiovascular: No chest pain, no palpitations. Gastrointestinal: No vomiting, no abdominal pain. Musculoskeletal: As above Allergies: Coded Allergies: NSAIDS (Non-Steroidal Anti-Inflamma (Verified Allergy, Severe, mouth ulcers, 01/04/18) baclofen (Verified Allergy, Severe, muscle spasms, pain, altered mental status, 01/04/18) carisoprodol (Verified Allergy, Severe, ANAPHYLACTIC, 01/04/18) celecoxib (Verified Allergy, Severe, ANAPHYLAXIS, 01/04/18) duloxetine HCl (Verified Allergy, Severe, KIDNEY IRRITATION, 01/04/18) pregabalin (Verified Allergy, Severe, ANAPHYLAXIS, 01/04/18) gabapentin (Verified Allergy, Intermediate, HALLUCINATIONS, 01/04/18) Home Meds Active Scripts Umeclidinium Brm/Vilanterol Tr (Anoro Ellipta 62.5-25 Mcg INH) 1 Each Disk.w.dev, 1 INHALER INH DAILY for 90 Days, #3 MISC 4 Refills Prov:KIMBERLY LY MD 09/29/17 Polyethylene Glycol 3350 (MIRALAX) 17 Gm Powd.pack, 17 GM PO QDAY, #7 PKT Prov:WILL JONES MD 09/22/17 Albuterol Sulfate (VENTOLIN HFA) 18 Gm Inh, 2 PUFF INH Q4-6H, #1 INH 11 Refills Prov:KIMBERLY LY MD 06/16/17 Saccharomyces Boulardii (FLORASTOR) 250 Mg Capsule, 250 MG PO BID, #180 CAPSULE 3 Refills Prov:KIMBERLY LY MD 05/25/17 Famotidine (FAMOTIDINE) 20 Mg Tablet, 20 MG PO BID, #180 TAB 3 Refills Prov:KIMBERLY LY MD 05/25/17 Reported Medications Tizanidine Hcl (TIZANIDINE HCL) 4 Mg Tablet, 4 MG PO TID 11/16/17 Guaifenesin (MUCINEX) 600 Mg Tablet.er, 600 MG PO DAILY 11/16/17 Lorazepam (LORAZEPAM) 1 Mg Tab, 1 TAB PO PRN, TAB 05/25/17 Fluticasone Prop 50 Mcg Ns (FLONASE 50 MCG NS) Unknown Strength [place].susp, NS BID, BOT 05/25/17 Cyclobenzaprine Hcl (CYCLOBENZAPRINE HCL) 10 Mg Tablet, 10 MG PO QID, #9 TAB 05/25/17 Oxycodone Hcl (OXYCONTIN) 20 Mg Tab.er.12h, 1 TAB PO Q12H, TAB 05/25/17 Oxycodone Hcl 10 Mg Tab (OXYCODONE HCL 10 MG TAB) 10 Mg Tablet, 1-2 TAB PO Q4-6H PRN for PRN, TAB 05/25/17 Cholecalciferol (Vitamin D3) (VITAMIN D-3) 2,000 Unit Capsule, 2000 UNIT PO D AILY, CAPSULE 06/20/16 Vitamin B Complex (B COMPLETE) 1 Each Tablet, 1 EACH PO DAILY 06/20/16 Calcium Carbonate (CALCIUM) 500 Mg Tablet, 500 MG PO DAILY 06/20/16 Multivitamin (MULTI-VITAMIN DAILY) 1 Each Tablet, 1 EACH PO DAILY 06/20/16 Albuterol Sulfate 0.083% (ALBUTEROL SULFATE 0.083%) 2.5 Mg/3 Ml Vial.neb, 2.5 MG INH, INH 06/18/15 Past Medical/Surgical History Past Medical History HEENT: Reports hx of: Meniere's disease Respiratory: Reports hx of: asthma COPD Gastrointestinal: Reports hx of: peptic ulcer disease Hematology/oncology: Reprots hx of: other hematologic history (Waldenstrom's Macroglobulinemia) Infectious disease: Reports hx of: other infectious disease (Propionobacterium, spinal infection 2018) Past Surgical History HEENT: Reports hx of: other throat surgery (L salivary gland removal) Musculoskeletal: Reports hx of: spinal surgery (lumbar laminectomy 2003, Lumbar fusion and removal of synovial cyst L4-5 2009, 2012 and 2013) Reviewed Nurses Notes: Yes Old Medical Records Reviewed: Yes Hx Smoking: Yes (6) Smoking Status: Former Smoker Exposure to Second Hand Smoke?: Yes (both parents smoked) Hx Substance Use Disorder: Yes (HX OF OPIOID WITHDRAWL) Hx Alcohol Use: Yes (occ) Constitutional Vital Sign - Last 24 Hours 01/04/18 01/04/18 01/04/18 01/04/18 17:44 17:47 17:48 17:49 Temp 98.5 Pulse 112 99 Resp 20 B/P (MAP) 158/93 156/138 (144) 158/93 (114) Pulse Ox 91 O2 Delivery Room Air 01/04/18 01/04/18 01/04/18 01/04/18 18:00 18:17 18:17 18:17 Pulse 93 98 Resp 22 11 B/P (MAP) 128/105 (113) Pulse Ox 91 91 O2 Delivery Room Air Nasal Cannula O2 Flow Rate 0.5 01/04/18 01/04/18 01/04/18 01/04/18 18:20 18:30 18:35 19:00 Pulse 97 Resp 14 14 B/P (MAP) 144/98 (113) 159/101 (120) Pulse Ox 94 94 O2 Delivery Nasal Cannula O2 Flow Rate 2.0 2 01/04/18 01/04/18 01/04/18 19:05 19:30 19:35 Pulse 95 106 Resp 11 10 B/P (MAP) 151/97 (115) Pulse Ox 93 93 Physical Exam Vital signs stable, afebrile, mildly tachycardic General Appearance: The patient is alert, has no immediate need for airway protection and no current signs of toxicity. Moderate distress HEENT: Pupils equal and round no injection. TMs normal, oropharynx without redness or exudate, mucous. Membranes are moist Respiratory: Chest is non tender, lungs are clear to auscultation. No wheezing or rails Cardiac: regular rate and rhythm Gastrointestinal: Abdomen is soft and non tender, no masses, bowel sounds normal. Musculoskeletal: Neck: Neck is supple and non tender. There is tenderness on palpation of the right brachial plexus in the right side of the neck. In the paraspinous muscles Extremities have full range of motion and are non tender. The right shoulder appears without erythema, edema or induration. There is a well-healed surgical scar over the right shoulder joint. There is no joint effusion noted. There is extreme tenderness on palpation, there is pain out of proportion to clinical findings. With even mild or light touching of the skin. Examination of the right upper extremity reveals a neurovascularly intact right upper extremity. Skin: No rashes or lesions. DIFFERENTIAL DIAGNOSIS: After history and physical exam differential diagnosis was considered for right shoulder pain, chronic pain exacerbation, in renal sensation reaction, deep hematoma, acute arthritis, bursitis, septic joint, cervical radiculopathy. Medical Decision Making Data Points Result Diagram: 01/04/180 01/04/180 Laboratory Hematology Test 01/04/18 18:20 Red Blood Count 4.61 M/uL (4.17-5.56) Mean Corpuscular Volume 96.2 fL (80.0-96.0) Mean Corpuscular Hemoglobin 33.0 pg (26.0-33.0) Mean Corpuscular Hemoglobin Concent 34.3 g/dL (32.0-36.0) Red Cell Distribution Width 13.2 % (11.5-14.5) Mean Platelet Volume 6.7 fL (7.2-11.1) Neutrophils (%) (Auto) 75.4 % (39.4-72.5) Lymphocytes (%) (Auto) 15.7 % (17.6-49.6) Monocytes (%) (Auto) 8.1 % (4.1-12.4) Eosinophils (%) (Auto) 0.3 % (0.4-6.7) Basophils (%) (Auto) 0.5 % (0.3-1.4) Nucleated RBC Relative Count (auto) 0.0 /100WBC Neutrophils # (Auto) 8.4 K/uL (2.0-7.4) Lymphocytes # (Auto) 1.7 K/uL (1.3-3.6) Monocytes # (Auto) 0.9 K/uL (0.3-1.0) Eosinophils # (Auto) 0.0 K/uL (0.0-0.5) Basophils # (Auto) 0.1 K/uL (0.0-0.1) Nucleated RBC Absolute Count (auto) 0.00 K/uL D-Dimer Quantitative (PE/DVT) 0.53 ug/ml (0-0.50) Sodium Level 136 mmol/L (137-145) Potassium Level 3.9 mmol/L (3.5-5.0) Chloride Level 102 mmol/L (98-107) Carbon Dioxide Level 26 mmol/L (22-31) Blood Urea Nitrogen 16 mg/dl (7-18) Creatinine 0.70 mg/dl (0.52-1.04) Glomerular Filtration Rate Calc > 60.0 Random Glucose 106 mg/dl (75-110) Calcium Level 9.9 mg/dl (8.4-10.2) Total Bilirubin 0.2 mg/dl (0.2-1.3) Aspartate Amino Transf (AST/SGOT) 28 U/L (0-35) Alanine Aminotransferase (ALT/SGPT) 29 U/L (0-56) Alkaline Phosphatase 85 U/L (0-126) Troponin I < 0.012 ng/ml B-Type Natriuretic Peptide 45 pg/ml (0-100) Total Protein 7.5 g/dl (6.3-8.2) Albumin 4.4 g/dl (3.5-5.0) Chemistry Test 01/04/18 18:20 White Blood Count 11.1 k/uL (4.5-11.0) Red Blood Count 4.61 M/uL (4.17-5.56) Hemoglobin 15.2 g/dL (12.0-16.0) Hematocrit 44.3 % (34.0-47.0) Mean Corpuscular Volume 96.2 fL (80.0-96.0) Mean Corpuscular Hemoglobin 33.0 pg (26.0-33.0) Mean Corpuscular Hemoglobin Concent 34.3 g/dL (32.0-36.0) Red Cell Distribution Width 13.2 % (11.5-14.5) Platelet Count 274 K/uL (150-450) Mean Platelet Volume 6.7 fL (7.2-11.1) Neutrophils (%) (Auto) 75.4 % (39.4-72.5) Lymphocytes (%) (Auto) 15.7 % (17.6-49.6) Monocytes (%) (Auto) 8.1 % (4.1-12.4) Eosinophils (%) (Auto) 0.3 % (0.4-6.7) Basophils (%) (Auto) 0.5 % (0.3-1.4) Nucleated RBC Relative Count (auto) 0.0 /100WBC Neutrophils # (Auto) 8.4 K/uL (2.0-7.4) Lymphocytes # (Auto) 1.7 K/uL (1.3-3.6) Monocytes # (Auto) 0.9 K/uL (0.3-1.0) Eosinophils # (Auto) 0.0 K/uL (0.0-0.5) Basophils # (Auto) 0.1 K/uL (0.0-0.1) Nucleated RBC Absolute Count (auto) 0.00 K/uL D-Dimer Quantitative (PE/DVT) 0.53 ug/ml (0-0.50) Glomerular Filtration Rate Calc > 60.0 Calcium Level 9.9 mg/dl (8.4-10.2) Total Bilirubin 0.2 mg/dl (0.2-1.3) Aspartate Amino Transf (AST/SGOT) 28 U/L (0-35) Alanine Aminotransferase (ALT/SGPT) 29 U/L (0-56) Alkaline Phosphatase 85 U/L (0-126) Troponin I < 0.012 ng/ml B-Type Natriuretic Peptide 45 pg/ml (0-100) Total Protein 7.5 g/dl (6.3-8.2) Albumin 4.4 g/dl (3.5-5.0) Coagulation Test 01/04/18 18:20 D-Dimer Quantitative (PE/DVT) 0.53 ug/ml EKG/Imaging EKG Interpretation 12 lead EK Rhythm: normal sinus rhythm Breeden: normal QRS: normal,? Old anterior Q's ST segments: normal, no evidence of ischemia or dysrhythmia, comparison to previous EKG dated , no significant change Imaging Patient refused chest x-ray. ED Course/Re-evaluation Clinical Indication for ER IV: IV Access ED Course Patient was admitted to an examination room. H&P was done. The dental mary gnoses was considered. On conical examination. Patient with severe distress. She has chronic pain syndrome. After receiving her Pneumovax injection in her right shoulder. She's developed severe pain. I think she is having an adverse reaction to the vaccine. She may also have cup location such as a hematoma from a ruptured vessel. There is no obvious redness, swelling, bruising or ecchymosi s noted. There is no joint effusion in the adjacent area. Patient has diagnostic studies sent off. She's medicated with IV Dilaudid for pain relief. Her pain appears relatively controlled. She'll be discharged home to take her medications to control her pain. If she is unimproved. She is advised to contact her physician tomorrow, that administered the vaccination. Decision to Disposition Date: Jan 04, 2018 Decision to Disposition Time: 19:02 Depart Departure Latest Vital Signs Vital Signs Date Time Temp Pulse Resp B/P (MAP) Pulse Ox O2 Delivery O2 Flow Rate FiO2 01/04/18 19:35 106 10 93 01/04/18 19:30 151/97 (115) 01/04/18 18:30 Nasal Cannula 2 01/04/18 17:44 98.5 Impression: Primary Impression: Right shoulder pain Additional Impressions: Adverse effects of medication Chronic pain syndrome COPD (chronic obstructive pulmonary disease) Condition: Improved Disposition: HOME OR SELF-CARE Referrals: KIMBERLY LY MD (PCP) Patient Instructions: Adverse Drug Reaction (ED) Additional Instructions: Apply warm compresses to your affected right shoulder Follow-up with your primary care if unimproved in 1-4 days. Problem Qualifiers Primary Impression: Right shoulder pain Chronicity: acute Qualified Codes: M25.511 - Pain in right shoulder Additional Impressions: Adverse effects of medication Encounter type: initial encounter Qualified Codes: T50.905A - Adverse effect of unspecified drugs, medicaments and biological substances, initial encounter COPD (chronic obstructive pulmonary disease) COPD type: unspecified COPD Qualified Codes: J44.9 - Chronic obstructive pulmonary disease, unspecified HARSHA CAMPBELL DO Jan 04, 2018 17:57
[2018-01-04] MEDS ORDERED: ALBUTEROL/IPRATROPIUM 3 ML NEB NEB ONE (18:00)
[2018-01-04] MEDS ORDERED: HYDROMORPHONE HCL 1 MG/ML SYRINGE IVP ONE ×2 (18:00→19:30)
[2018-01-04 18:28] LABS: PLATELET COUNT, AUTOMATED 274 K/uL (150-450)
--- NOTE | 2018-01-04 18:41 | EKG ---
FACILITY: [facility] - [place] PATIENT NAME: ELIZA MISTRY : [id number] MR: [id number] V: [id number] EXAM DATE: ORDERING PHYSICIAN: HARSHA CAMPBELL TECHNOLOGIST: Test Reason : DYSPNEA Blood Pressure : / mmHG Vent. Rate : 097 BPM Atrial Rate : 097 BPM P-R Int : 136 ms QRS Dur : 078 ms QT Int : 332 ms P-R-T Axes : 073 050 072 degrees QTc Int : 421 ms Normal sinus rhythm Septal infarct , age undetermined Abnormal ECG Confirmed by JAH CHANDLER ([id number]) on 01/05/2018 6:16:11 AM Referred By: Confirmed By:JAH CHANDLER
[2018-01-04] MEDS ORDERED: HYDROmorphone HCL 2 MG/ML SDV IVP ONE (18:45)
[2018-01-04 19:30] VITALS: BP 151/97
== END 2018-01-04 19:50 | disposition home or self-care (01) ==
LOC: ER 18:10
DX: T50.905A Adverse effect of unspecified drugs, medicaments and biological substances, initial encounter (principal); J44.9 Chronic obstructive pulmonary disease, unspecified; R06.00 Dyspnea, unspecified
CPT/HCPCS: 83880; 84484; 85025; 85379; 93005; 94640; 96374; 96376; 99284; J1170; J7620; 82040; 82247; 82310; 82374; 82435; 82565; 82947; 84075; 84132; 84155; 84295; 84450; 84460; 84520

== ENCOUNTER → 2018-01-04 | Outpatient (CLI) | payer MEDICARE, BC ==
[2016-08-10 12:23] VITALS: BMI 18.0
[~2018-01-04] MED LIST changes: +PNEI IM
== END ==
LOC: AMB 17:30
PROVIDERS: ATTEND Nurse Practitioner
DX: M25.511 Pain in right shoulder (principal); R06.4 Hyperventilation
CPT/HCPCS: A0425; A0429

== ENCOUNTER → 2018-01-08 | Outpatient (CLI) | payer MEDICARE, BC ==
[2016-08-10 12:23] VITALS: BMI 18.0
[2018-01-08 14:02] LABS: PLATELET COUNT, AUTOMATED 312 K/uL (150-450)
--- NOTE | 2018-01-08 16:44 | RADIOLOGY IMAGING REPORT ---
FACILITY: PATIENT NAME: Yessica Arredondo : 1955 MR: [id number] V: [id number] EXAM DATE: [id number] ORDERING PHYSICIAN: KIMBERLY LY TECHNOLOGIST: [place] [facility] [place]: Yessica Arredondo : 1955 Visit/Account:[id number] Date of Sevice: 01/08/2018 Exam type: SHOULDERS BILAT 2 OR MORE VIEW History: Pain after pneumonia shot on pain with swelling on left shoulder radiates down arm Comparison: None. Findings: Three views of the right shoulder reveal mild to moderate narrowing at the right glenohumeral joint. Enthesopathic changes are seen along the superolateral aspect the right humeral head. There are mod erate degenerative changes at the right AC joint. A definite abscess is not seen in the adjacent sof t tissues. Three views of the left shoulder demonstrate mild narrowing at the left glenohumeral joint and enthes opathic changes along the superior lateral aspect left humeral head. There are mild to moderate dege nerative changes at the left AC joint. A definite abscess is not identified in the adjacent soft tis sues. Incidentally noted are incompletely imaged changes of posterior fusion of the lower thoracic s pine and anterior fusion of the cervical spine IMPRESSION: 1. Degenerative changes of both shoulder joints and AC joints are present as described above. No definite abscess identified in the adjacent soft tissues Report Dictated By: Hilary Barrios MD at 01/08/2018 4:39 PM Report E-Signed By: Hilary Barrios MD at 01/08/2018 4:41 PM WSN:[id number]
--- NOTE | 2018-01-08 17:00 | RADIOLOGY IMAGING REPORT ---
FACILITY: [facility] - [place] PATIENT NAME: Yessica Arredondo : 1955 MR: [id number] V: [id number] EXAM DATE: ORDERING PHYSICIAN: KIMBERLY LY TECHNOLOGIST: Location: [facility] Patient: Yessica Arredondo : 1955 Visit/Account:[id number] Date of Sevice: 01/08/2018 Examination: MRI right shoulder without and with contrast HISTORY: Shoulder pain and swelling. Recent pneumonia vaccine. TECHNIQUE: Multiplanar, multisequence MRI examination is performed of the right shoulder before and a fter the administration of 10 mL IV MultiHance. FINDINGS: There has been previous acromioplasty procedure performed. Acromioclavicular joint remains appropriat pia aligned. Glenohumeral joint is appropriately aligned at the time of imaging. There is a trace glenohumeral marcelino nt effusion. There has been previous rotator cuff repair procedure performed. Suture anchors noted in the greater tuberosity. There is thinning of the supraspinatus and infraspinatus tendons at their insertions. Thi s may reflect post debridement change and postoperative change. No definitive retracted full-thicknes s tear seen. The subscapularis tendon appears intact. The intra-articular portion of the long head bi ceps tendon is not seen. The tendon extends into the region of the bicipital groove and the site of p rior repair. Correlate for prior biceps tenodesis. The subacromial-subdeltoid bursa is distended with bright T2 signal. Following the administration of gadolinium, there is intense enhancement of the bursal margins compatible with a diffuse bursitis. Th ere is surrounding soft tissue enhancement. Correlate clinically. Given the history, an infectious bu rsitis cannot be excluded. No focal intramuscular fluid collection is seen within the deltoid. IMPRESSION: 1. No evidence of deltoid muscle abscess or fluid collection. 2. Marked subacromial-subdeltoid bursitis at the right shoulder with intense peripheral enhancement a nd surrounding soft tissue enhancement. Given the history, the possibility of an infected bursitis ca nnot be completely excluded. Correlate clinically. 3. Changes of prior rotator cuff repair and subacromial decompression. No evidence to suggest recurre nt tear. 4. Trace glenohumeral joint effusion. Results were discussed with KIMBERLY LY at 01/08/2018 4:55 PM. Report Dictated By: Russ Gooden at 01/08/2018 4:44 PM Report E-Signed By: Russ Gooden at 01/08/2018 4:57 PM WSN:[id number]
== END ==
LOC: LAB 13:40
PROVIDERS: ATTEND Emergency Medicine
DX: M75.51 Bursitis of right shoulder (principal); M25.511 Pain in right shoulder
CPT/HCPCS: 36415; 85025; 85379; 85651; 86140

== ENCOUNTER → 2018-01-11 | Outpatient (CLI) | payer MEDICARE, BC ==
[2016-08-10 12:23] VITALS: BMI 18.0
== END ==
LOC: LAB 12:28
PROVIDERS: ATTEND Emergency Medicine
DX: M85.80 Other specified disorders of bone density and structure, unspecified site (principal)
CPT/HCPCS: 82340

== ENCOUNTER → 2018-02-13 | Outpatient (CLI) | payer MEDICARE, BC ==
[2016-08-10 12:23] VITALS: BMI 18.0
[~2018-02-13] MED LIST changes: +AMIT-108 PO
--- NOTE | 2018-02-13 10:54 | RADIOLOGY IMAGING REPORT ---
FACILITY: [facility] - [place] PATIENT NAME: Yessica Arredondo : 1955 MR: [id number] V: [id number] EXAM DATE: ORDERING PHYSICIAN: AUDRA REYNAGA TECHNOLOGIST: [facility] Patient: Yessica Arredondo : 1955 Visit/Account:[id number] Date of Sevice: 02/13/2018 CHEST PA AND LAT INDICATION: Cough COMPARISON: 01/11/2015 FINDINGS: Heart size within normal limits. There is no focal infiltrate or lobar consolidation. Lung volumes are hyperexpanded There is no pneumothorax or pleural effusion. IMPRESSION: 1. No acute cardiopulmonary process. Stable COPD Report Dictated By: Anil Pierre at 02/13/2018 10:49 AM Report E-Signed By: Anil Pierre at 02/13/2018 10:50 AM WSN:[id number]
== END ==
LOC: RAD 10:08
PROVIDERS: ATTEND Nurse Practitioner Primary Care
DX: R05 Cough (principal); J44.9 Chronic obstructive pulmonary disease, unspecified
CPT/HCPCS: 71046

== ENCOUNTER → 2018-03-13 | Outpatient (CLI) | payer MEDICARE, BC ==
[2016-08-10 12:23] VITALS: BMI 18.0
--- NOTE | 2018-03-13 10:40 | RADIOLOGY IMAGING REPORT ---
FACILITY: [facility] - [place] PATIENT NAME: Yessica Arredondo : 1955 MR: [id number] V: [id number] EXAM DATE: ORDERING PHYSICIAN: KIMBERLY LY TECHNOLOGIST: Location[place] [facility] [place] Patient: Yessica Arredondo : 1955 Visit/Account:[id number] Date of Sevice: 03/13/2018 DEXA Scan Clinical history: Osteopenia. Comparison: DEXA scan from 03/09/2017. HIP: Bone mineral density (BMD) measured in the Left total hip region correlates with a Z-score -0.1 and a T-score of -1.7 which is Normal as defined by the World Health Organization. The corresponding risk of fracture in the hip is 3-4 times increased compared with a young adult reference population. This total hip value has increased by 3.8 % since the prior study. More than 5% change is considered sig nificant. T score left femoral neck -1.8 Bone mineral density (BMD) measured in the Femoral Neck region measures 0.782 g/cm2. FOREARM: The bone mineral density (BMD) measured in the ULTRADISTAL right forearm, where trabecular bone predo minates, correlates with a Z-score 1.0 and a T-score of -0.3 which is normal as defined by the World Health Organization. The corresponding risk of fracture in the distal forearm is not increased brad red with a young adult reference population. This value has increased by 2.8 % since the prior study . More than 5% change is considered significant. The bone mineral density (BMD) in the MIDSHAFT of the forearm, where cortical bone predominates, aaliyah elates with a Z-score 0.5 and a T-score of -1.7 which is osteopenia as defined by the World Health Or ganization. The corresponding risk of fracture in the midshaft of the forearm is 3-4 times increased compared with a young adult reference population. This value has increased by 3.8 % since the prior s tudy. More than 5% change is considered significant. IMPRESSION: 1. Left Hip: Normal. There has been 3.8% increase in the total hip bone mineral density since the p revious exam. 2. Femoral Neck: Bone Mineral Density is 0.782 g/cm2 3. Right Forearm: Osteopenia. There has been 3.8% increase in the bone mineral density since the p revious exam The next DEXA scan of this patient should include the following sites: L1-L4 and the right forearm. FRAX? WHO Fracture Risk Assessment Tool link: <http://www.shef.ac.uk/FRAX/tool.jsp?locationValue=9> PLEASE NOTE: 1) The World Health Organization defines low BMD as follows: T-score Normal > -1 Osteopenia < -1 and > -2.5 Osteoporosis < -2.5 without fractures Established osteoporosis < -2.5 with fractures 2) In general, you may wish to consider: Diagnosis Treatment Follow-up DEXA Normal BMD Prevention 2-3 years Osteopenia Prevention/therapy 1-2 years Osteoporosis Therapy Yearly 3) Fracture risk estimated from the T-score is more accurate for vertebral fractures (often spontane ous) than for hip fractures. . Report Dictated By: Hilary Barrios MD at 03/13/2018 10:32 AM Report E-Signed By: Hilary Barrios MD at 03/13/2018 10:35 AM WSN:[id number]
== END ==
LOC: RAD 00:50
PROVIDERS: ATTEND Emergency Medicine
DX: M85.80 Other specified disorders of bone density and structure, unspecified site (principal); E21.3 Hyperparathyroidism, unspecified
CPT/HCPCS: 77080

== ENCOUNTER → 2018-04-23 | Outpatient (CLI) | payer MEDICARE, BC ==
[2016-08-10 12:23] VITALS: BMI 18.0
[~2018-04-23] MED LIST changes: +LAC10L PO
--- NOTE | 2018-04-23 16:07 | RADIOLOGY IMAGING REPORT ---
FACILITY: PATIENT NAME: Yessica Arredondo : 1955 MR: [id number] V: [id number] EXAM DATE: ORDERING PHYSICIAN: KIMBERLY LY TECHNOLOGIST: Location: [facility] Patient: Yessica Arredondo : 1955 Visit/Account:[id number] Date of Sevice: 04/23/2018 Exam type: KUB SINGLE VIEW ABDOMEN History: Constipation since last Monday Comparison: July 09, 2016. Findings: There is moderate gaseous distention of the cecum. The remainder of the Bowel gas pattern is otherwi se nonspecific. There are extensive postoperative changes of the thoracolumbar spine from posterior fusion in addition to postoperative changes the sacrum and SI joints. IMPRESSION: 1. Moderate gaseous distention of the cecum. The remainder the bowel gas pattern is nonspecific Report Dictated By: Hilary Barrios MD at 04/23/2018 4:00 PM Report E-Signed By: Hilary Barrios MD at 04/23/2018 4:02 PM WSN:[email or web address]
== END ==
LOC: RAD 14:44
PROVIDERS: ATTEND Emergency Medicine
DX: K59.00 Constipation, unspecified (principal)
CPT/HCPCS: 74018

== ENCOUNTER → 2018-05-11 | Outpatient (CLI) | payer MEDICARE, BC ==
[2016-08-10 12:23] VITALS: BMI 18.0
[~2018-05-11] MED LIST changes: +LIDOCAINE MPF 1% 5 ML VIAL ONE; +NS(*) 0.9% 10 ML VIAL 0 ML ONE
--- NOTE | 2018-05-11 09:52 | RADIOLOGY IMAGING REPORT ---
[place]AC[place] [facility] [place]IENT NAME: Yessica Arredondo : 1955 MR: [id number] V: [id number] EXAM DATE: ORDERING PHYSICIAN: OFELIA GARDINER TECHNOLOGIST: Location: [facility] [place] Patient: Yessica Arredondo : 1955 Visit/Account:[id number] Date of Sevice: 05/11/2018 Ultrasound-guided left upper extremity brachial vein access, and fluoroscopy-guided left upper extrem ity PICC insertion. HISTORY: Infection. The procedure and risks were explained to the patient who agreed to proceed. Following sterile prep a nd drape the upper extremity was anesthetized with 5 ml 1 percent lidocaine without epinephrine. Ultr asound was used to locate a patent left brachial vein. The left basilic vein is very small. Under d irect ultrasound guidance a micropuncture set was used to place a five German catheter in the brachia l vein above the elbow, with care taken to avoid the brachial artery. Ultrasound images were recorded and archived. A peel away sheath was inserted. Under fluoroscopic guidance, a PICC was then advanced and positioned such that the tip was located in the superior vena cava at the superior caval atrial junction. The catheter was secured with a sterile dressing. The catheter was flushed with saline. The patient tolerated the procedure well without complications. Degenerative changes and metal hardware are present in the thoracolumbar spine MEDICATIONS: None. INTRASERVICE TIME: 15 minutes. FLUOROSCOPY TIME: 0.5 minutes. DOSE: DAP was 59.4 microGy*m2. CONTRAST: None. IMPRESSION: Left upper extremity PICC insertion. Report Dictated By: Wade Espinosa MD at 05/11/2018 9:45 AM Report E-Signed By: Wade Espinosa MD at 05/11/2018 9:48 AM NILAN:ANDRES
--- NOTE | 2018-05-11 09:53 | RADIOLOGY IMAGING REPORT ---
[facility] PATIENT NAME: Yessica Arredondo : 1955 MR: [id number] V: [id number] EXAM DATE: ORDERING PHYSICIAN: OFELIA GARDINER TECHNOLOGIST: [place] [facility] [place] Patient: Yessica Arredondo : 1955 Visit/Account:[id number] Date of Sevice: 05/11/2018 Ultrasound-guided left upper extremity brachial vein access, and fluoroscopy-guided left upper extrem ity PICC insertion. HISTORY: Infection. The procedure and risks were explained to the patient who agreed to proceed. Following sterile prep a nd drape the upper extremity was anesthetized with 5 ml 1 percent lidocaine without epinephrine. Ultr asound was used to locate a patent left brachial vein. The left basilic vein is very small. Under d irect ultrasound guidance a micropuncture set was used to place a five Lao catheter in the brachia l vein above the elbow, with care taken to avoid the brachial artery. Ultrasound images were recorded and archived. A peel away sheath was inserted. Under fluoroscopic guidance, a PICC was then advanced and positioned such that the tip was located in the superior vena cava at the superior caval atrial junction. The catheter was secured with a sterile dressing. The catheter was flushed with saline. The patient tolerated the procedure well without complications. Degenerative changes and metal hardware are present in the thoracolumbar spine MEDICATIONS: None. INTRASERVICE TIME: 15 minutes. FLUOROSCOPY TIME: 0.5 minutes. DOSE: DAP was 59.4 microGy*m2. CONTRAST: None. IMPRESSION: Left upper extremity PICC insertion. Report Dictated By: Wade Espinosa MD at 05/11/2018 9:45 AM Report E-Signed By: Wade Espinosa MD at 05/11/2018 9:48 AM NILAN:ANDRES
== END ==
LOC: US 08:31
PROVIDERS: ATTEND Internal Medicine Nephrology
DX: T84.63XA Infection and inflammatory reaction due to internal fixation device of spine, initial encounter (principal)
CPT/HCPCS: 36573; C1751; J2001

== ENCOUNTER → 2018-05-30 | Outpatient (CLI) | payer MEDICARE, BC ==
[2016-08-10 12:23] VITALS: BMI 18.0
[~2018-05-30] MED LIST changes: -LIDOCAINE MPF 1% 5 ML VIAL ONE; -NS(*) 0.9% 10 ML VIAL 0 ML ONE
--- NOTE | 2018-05-30 16:51 | RADIOLOGY IMAGING REPORT ---
FACILITY: [facility] PATIENT NAME: ELIZA MISTRY : [id number] MR: [id number] V: [id number] EXAM DATE: [id number] ORDERING PHYSICIAN: KIMBERLY LY TECHNOLOGIST: America Talbot PROCEDURE:BILATERAL DIGITAL SCREENING MAMMOGRAM WITH CAD ASSISTED INTERPRETATION & 3D TOMOSYNTHESIS COMPARISON:Prior mammograms 03/09/17, 05/18/15, 03/13/14, 10/05/12, 09/06/11. INDICATIONS:screening FINDINGS: The breasts are heterogeneously dense which can obscure small masses. The parenchymal pattern has remained stable allowing for difference in mammographic technique & patient positioning. There is no evidence of malignant appearing mass, malignant appearing calcifications or other secondary sign of malignancy in either breast. DIAGNOSTIC CATEGORY 1--NEGATIVE. RECOMMENDATIONS: ROUTINE MAMMOGRAM AND CLINICAL EVALUATION. IMPRESSION: BIRADS 1: Negative. No significant abnormality is seen. Dictated by: Hilary Barrios M.D. on 05/30/2018 at 14:53 Transcribed by: CAROLINA on 05/30/2018 at 15:02 Approved by: Hilary Barrios M.D. on 05/30/2018 at 16:50 [facility]
== END ==
LOC: MAMO 01:42
PROVIDERS: ATTEND Emergency Medicine
DX: Z12.31 Encounter for screening mammogram for malignant neoplasm of breast (principal)
CPT/HCPCS: 77063; 77067

== ENCOUNTER 2018-07-06 12:29 | Outpatient (RCR) | payer MEDICARE, BC ==
[2016-08-10 12:23] VITALS: BMI 18.0
[2018-05-11] MEDS: NS(*) 0.9% 100 ML BAG 100 ML IVPB PRN (10:06)
[2018-05-11] MEDS: cefTRIAXone(*) 2 GM VIAL 2 GM in NS(*) 0.9% 100 ML ADDVANT BAG 100 ML IVPB SCH (10:08)
[2018-05-11 10:16] VITALS: BP 128/62
[2018-05-11 10:44] VITALS: BP 134/88
[2018-05-12] MEDS: NS(*) 0.9% 100 ML BAG 100 ML IVPB PRN (12:03)
[2018-05-12] MEDS: cefTRIAXone(*) 2 GM VIAL 2 GM in NS(*) 0.9% 100 ML ADDVANT BAG 100 ML IVPB SCH (12:04)
[2018-05-12 12:15] VITALS: BP 149/72
[2018-05-12 13:19] VITALS: BP 119/78
[2018-05-13] MEDS: cefTRIAXone(*) 2 GM VIAL 2 GM in NS(*) 0.9% 100 ML ADDVANT BAG 100 ML IVPB SCH (12:05)
[2018-05-13] MEDS: NS(*) 0.9% 100 ML BAG 100 ML IVPB PRN (12:05)
[2018-05-13 12:06] VITALS: BP 128/79
[2018-05-13 12:33] VITALS: BP 138/91
[2018-05-14] MEDS: cefTRIAXone(*) 2 GM VIAL 2 GM in NS(*) 0.9% 100 ML ADDVANT BAG 100 ML IVPB SCH (11:35)
[2018-05-14 11:36] LABS: PLATELET COUNT, AUTOMATED 222 K/uL (150-450)
[2018-05-14 11:52] VITALS: BP 117/74
[2018-05-15 10:47] VITALS: BP 137/98
[2018-05-15] MEDS: NS(*) 0.9% 100 ML BAG 100 ML IVPB PRN (10:55)
[2018-05-15] MEDS: cefTRIAXone(*) 2 GM VIAL 2 GM in NS(*) 0.9% 100 ML ADDVANT BAG 100 ML IVPB SCH (10:56)
[2018-05-15 11:36] VITALS: BP 121/80
[2018-05-16 10:59] VITALS: BP 136/83
[2018-05-16 11:49] VITALS: BP 116/78
[2018-05-17 11:48] VITALS: BP 157/98
[2018-05-17] MEDS: NS(*) 0.9% 100 ML BAG 100 ML IVPB PRN (11:50)
[2018-05-17] MEDS: cefTRIAXone(*) 2 GM VIAL 2 GM in NS(*) 0.9% 100 ML ADDVANT BAG 100 ML IVPB SCH (11:51)
[2018-05-17 12:28] VITALS: BP 138/76
[2018-05-18] MEDS: cefTRIAXone(*) 2 GM VIAL 2 GM in NS(*) 0.9% 100 ML ADDVANT BAG 100 ML IVPB SCH (11:51)
[2018-05-18] MEDS: NS(*) 0.9% 100 ML BAG 100 ML IVPB PRN (11:51)
[2018-05-18 11:54] VITALS: BP 115/84
[2018-05-18 12:37] VITALS: BP 123/79
[2018-05-19] MEDS: NS(*) 0.9% 100 ML BAG 100 ML IVPB PRN (10:20)
[2018-05-19] MEDS: cefTRIAXone(*) 2 GM VIAL 2 GM in NS(*) 0.9% 100 ML ADDVANT BAG 100 ML IVPB SCH (10:57)
[2018-05-19 11:15] VITALS: BP 128/87
[2018-05-19 12:11] VITALS: BP 134/84
[2018-05-20] MEDS: NS(*) 0.9% 100 ML BAG 100 ML IVPB PRN (10:22)
[2018-05-20] MEDS: cefTRIAXone(*) 2 GM VIAL 2 GM in NS(*) 0.9% 100 ML ADDVANT BAG 100 ML IVPB SCH (10:58)
[2018-05-20 11:00] VITALS: BP 137/88
[2018-05-20 11:35] VITALS: BP 128/83
[2018-05-21] MEDS: cefTRIAXone(*) 2 GM VIAL 2 GM in NS(*) 0.9% 100 ML ADDVANT BAG 100 ML IVPB SCH (13:00)
[2018-05-21 13:06] VITALS: BP 129/83
[2018-05-21] MEDS: NS(*) 0.9% 100 ML BAG 100 ML IVPB PRN (13:11)
[2018-05-21 13:12] LABS: PLATELET COUNT, AUTOMATED 200 K/uL (150-450)
[2018-05-22] MEDS: NS(*) 0.9% 100 ML BAG 100 ML IVPB PRN (12:28)
[2018-05-22] MEDS: cefTRIAXone(*) 2 GM VIAL 2 GM in NS(*) 0.9% 100 ML ADDVANT BAG 100 ML IVPB SCH (12:28)
[2018-05-22 12:29] VITALS: BP 164/90
[2018-05-23 13:54] VITALS: BP 156/97
[2018-05-23] MEDS: cefTRIAXone(*) 2 GM VIAL 2 GM in NS(*) 0.9% 100 ML ADDVANT BAG 100 ML IVPB SCH (14:10)
[2018-05-23] MEDS: NS(*) 0.9% 100 ML BAG 100 ML IVPB PRN (14:11)
[2018-05-23 14:39] VITALS: BP 159/90
[2018-05-24 13:49] VITALS: BP 147/97
[2018-05-24] MEDS: cefTRIAXone(*) 2 GM VIAL 2 GM in NS(*) 0.9% 100 ML ADDVANT BAG 100 ML IVPB SCH (13:58)
[2018-05-24] MEDS: NS(*) 0.9% 100 ML BAG 100 ML IVPB PRN (13:58)
[2018-05-24 14:40] VITALS: BP 154/105
[2018-05-25] MEDS: cefTRIAXone(*) 2 GM VIAL 2 GM in NS(*) 0.9% 100 ML ADDVANT BAG 100 ML IVPB SCH (11:37)
[2018-05-25] MEDS: NS(*) 0.9% 100 ML BAG 100 ML IVPB PRN (11:38)
[2018-05-25 12:08] VITALS: BP 142/105
[2018-05-25 12:23] VITALS: BP 121/89
[2018-05-26] MEDS: cefTRIAXone(*) 2 GM VIAL 2 GM in NS(*) 0.9% 100 ML ADDVANT BAG 100 ML IVPB SCH (08:55)
[2018-05-26] MEDS: NS(*) 0.9% 100 ML BAG 100 ML IVPB PRN (08:55)
[2018-05-26 08:56] VITALS: BP 133/96
[2018-05-27] MEDS: cefTRIAXone(*) 2 GM VIAL 2 GM in NS(*) 0.9% 100 ML ADDVANT BAG 100 ML IVPB SCH (08:51)
[2018-05-27] MEDS: NS(*) 0.9% 100 ML BAG 100 ML IVPB PRN (08:51)
[2018-05-27 08:52] VITALS: BP 123/87
[2018-05-28] MEDS: cefTRIAXone(*) 2 GM VIAL 2 GM in NS(*) 0.9% 100 ML ADDVANT BAG 100 ML IVPB SCH (11:48)
[2018-05-28 11:57] LABS: PLATELET COUNT, AUTOMATED 261 K/uL (150-450)
[2018-05-28 12:00] VITALS: BP 141/87
[2018-05-28] MEDS: NS(*) 0.9% 100 ML BAG 100 ML IVPB PRN (12:00)
[2018-05-29 12:38] VITALS: BP 145/96
[2018-05-29] MEDS: NS(*) 0.9% 100 ML BAG 100 ML IVPB PRN (12:45)
[2018-05-29] MEDS: cefTRIAXone(*) 2 GM VIAL 2 GM in NS(*) 0.9% 100 ML ADDVANT BAG 100 ML IVPB SCH (12:45)
[2018-05-29 13:25] VITALS: BP 123/85
[2018-05-30 11:35] VITALS: BP 109/99
[2018-05-30] MEDS: NS(*) 0.9% 100 ML BAG 100 ML IVPB PRN (11:43)
[2018-05-30] MEDS: cefTRIAXone(*) 2 GM VIAL 2 GM in NS(*) 0.9% 100 ML ADDVANT BAG 100 ML IVPB SCH (11:44)
[2018-05-30 12:17] VITALS: BP 129/81
[2018-05-31] MEDS: NS(*) 0.9% 100 ML BAG 100 ML IVPB PRN (10:39)
[2018-05-31 10:40] VITALS: BP 108/76
[2018-05-31] MEDS: cefTRIAXone(*) 2 GM VIAL 2 GM in NS(*) 0.9% 100 ML ADDVANT BAG 100 ML IVPB SCH (10:40)
[2018-06-01] MEDS: cefTRIAXone(*) 2 GM VIAL 2 GM in NS(*) 0.9% 100 ML ADDVANT BAG 100 ML IVPB SCH (13:18)
[2018-06-01] MEDS: NS(*) 0.9% 100 ML BAG 100 ML IVPB PRN (13:19)
[2018-06-01 13:20] VITALS: BP 138/80
[2018-06-01 14:10] VITALS: BP 112/77
[2018-06-02] MEDS: NS(*) 0.9% 100 ML BAG 100 ML IVPB PRN (10:56)
[2018-06-02] MEDS: cefTRIAXone(*) 2 GM VIAL 2 GM in NS(*) 0.9% 100 ML ADDVANT BAG 100 ML IVPB SCH (10:56)
[2018-06-02 11:00] VITALS: BP 123/87
[2018-06-02 11:28] VITALS: BP 133/84
[2018-06-03] MEDS: NS(*) 0.9% 100 ML BAG 100 ML IVPB PRN (10:30)
[2018-06-03] MEDS: cefTRIAXone(*) 2 GM VIAL 2 GM in NS(*) 0.9% 100 ML ADDVANT BAG 100 ML IVPB SCH (10:30)
[2018-06-03 10:31] VITALS: BP 148/84
[2018-06-03 11:05] VITALS: BP 135/111
[2018-06-04] MEDS: cefTRIAXone(*) 2 GM VIAL 2 GM in NS(*) 0.9% 100 ML ADDVANT BAG 100 ML IVPB SCH ×2 (12:30→16:14)
[2018-06-04] MEDS: NS(*) 0.9% 100 ML BAG 100 ML IVPB PRN (16:14)
[2018-06-04 16:17] VITALS: BP 134/94
[2018-06-04 16:43] VITALS: BP 133/88
[2018-06-05 12:52] VITALS: BP 121/76
[2018-06-05] MEDS: NS(*) 0.9% 100 ML BAG 100 ML IVPB PRN (13:07)
[2018-06-05 14:26] LABS: PLATELET COUNT, AUTOMATED 237 K/uL (150-450)
[2018-06-05 14:27] VITALS: BP 116/74
[2018-06-06 12:07] VITALS: BP 142/103
[2018-06-06] MEDS: cefTRIAXone(*) 2 GM VIAL 2 GM in NS(*) 0.9% 100 ML ADDVANT BAG 100 ML IVPB SCH (12:11)
[2018-06-06] MEDS: NS(*) 0.9% 100 ML BAG 100 ML IVPB PRN (12:11)
[2018-06-06 12:36] VITALS: BP 136/87
[2018-06-07 11:21] VITALS: BP 118/77
[2018-06-07] MEDS: NS(*) 0.9% 100 ML BAG 100 ML IVPB PRN (11:24)
[2018-06-07] MEDS: cefTRIAXone(*) 2 GM VIAL 2 GM in NS(*) 0.9% 100 ML ADDVANT BAG 100 ML IVPB SCH (11:25)
[2018-06-07 11:46] VITALS: BP 107/84
[2018-06-08 12:47] VITALS: BP 125/84
[2018-06-08] MEDS: NS(*) 0.9% 100 ML BAG 100 ML IVPB PRN (12:53)
[2018-06-08] MEDS: cefTRIAXone(*) 2 GM VIAL 2 GM in NS(*) 0.9% 100 ML ADDVANT BAG 100 ML IVPB SCH (12:54)
[2018-06-08 13:28] VITALS: BP 136/84
[2018-06-09 11:02] VITALS: BP 152/86
[2018-06-09] MEDS: NS(*) 0.9% 100 ML BAG 100 ML IVPB PRN (11:04)
[2018-06-09] MEDS: cefTRIAXone(*) 2 GM VIAL 2 GM in NS(*) 0.9% 100 ML ADDVANT BAG 100 ML IVPB SCH (11:04)
[2018-06-09 11:40] VITALS: BP 118/86
[2018-06-10 10:55] VITALS: BP 144/96
[2018-06-10] MEDS: NS(*) 0.9% 100 ML BAG 100 ML IVPB PRN (10:59)
[2018-06-10] MEDS: cefTRIAXone(*) 2 GM VIAL 2 GM in NS(*) 0.9% 100 ML ADDVANT BAG 100 ML IVPB SCH (11:00)
[2018-06-11 10:55] VITALS: BP 142/96
[2018-06-11] MEDS: NS(*) 0.9% 100 ML BAG 100 ML IVPB PRN (11:04)
[2018-06-11] MEDS: cefTRIAXone(*) 2 GM VIAL 2 GM in NS(*) 0.9% 100 ML ADDVANT BAG 100 ML IVPB SCH (11:04)
[2018-06-11 11:17] LABS: PLATELET COUNT, AUTOMATED 242 K/uL (150-450)
[2018-06-12 13:14] VITALS: BP 126/94
[2018-06-12] MEDS: cefTRIAXone(*) 2 GM VIAL 2 GM in NS(*) 0.9% 100 ML ADDVANT BAG 100 ML IVPB SCH (13:17)
[2018-06-12] MEDS: NS(*) 0.9% 100 ML BAG 100 ML IVPB PRN (13:17)
[2018-06-12 14:04] VITALS: BP 126/73
[2018-06-13 13:08] VITALS: BP 140/80
[2018-06-13] MEDS: NS(*) 0.9% 100 ML BAG 100 ML IVPB PRN (13:12)
[2018-06-13] MEDS: cefTRIAXone(*) 2 GM VIAL 2 GM in NS(*) 0.9% 100 ML ADDVANT BAG 100 ML IVPB SCH (13:13)
[2018-06-13 13:43] VITALS: BP 136/86
[2018-06-14] MEDS: NS(*) 0.9% 100 ML BAG 100 ML IVPB PRN (13:00)
[2018-06-14 13:01] VITALS: BP 137/87
[2018-06-14] MEDS: cefTRIAXone(*) 2 GM VIAL 2 GM in NS(*) 0.9% 100 ML ADDVANT BAG 100 ML IVPB SCH (13:01)
[2018-06-15] MEDS: NS(*) 0.9% 100 ML BAG 100 ML IVPB PRN (11:40)
[2018-06-15] MEDS: cefTRIAXone(*) 2 GM VIAL 2 GM in NS(*) 0.9% 100 ML ADDVANT BAG 100 ML IVPB SCH (11:40)
[2018-06-15 11:41] VITALS: BP 134/80
[2018-06-15 12:18] VITALS: BP 123/92
[2018-06-16 10:30] VITALS: BP 142/85
[2018-06-16] MEDS: cefTRIAXone(*) 2 GM VIAL 2 GM in NS(*) 0.9% 100 ML ADDVANT BAG 100 ML IVPB SCH (10:34)
[2018-06-16] MEDS: NS(*) 0.9% 100 ML BAG 100 ML IVPB PRN (10:35)
[2018-06-17 11:06] VITALS: BP 126/84
[2018-06-17] MEDS: cefTRIAXone(*) 2 GM VIAL 2 GM in NS(*) 0.9% 100 ML ADDVANT BAG 100 ML IVPB SCH (11:09)
[2018-06-17] MEDS: NS(*) 0.9% 100 ML BAG 100 ML IVPB PRN (11:09)
[2018-06-18 13:29] VITALS: BP 152/79
[2018-06-18] MEDS: NS(*) 0.9% 100 ML BAG 100 ML IVPB PRN (13:46)
[2018-06-18] MEDS: cefTRIAXone(*) 2 GM VIAL 2 GM in NS(*) 0.9% 100 ML ADDVANT BAG 100 ML IVPB SCH (13:47)
[2018-06-18 14:33] VITALS: BP 132/93
[2018-06-19 09:42] VITALS: BP 143/97
[2018-06-19 09:46] LABS: PLATELET COUNT, AUTOMATED 243 K/uL (150-450)
[2018-06-19] MEDS: NS(*) 0.9% 100 ML BAG 100 ML IVPB PRN (09:52)
[2018-06-19] MEDS: cefTRIAXone(*) 2 GM VIAL 2 GM in NS(*) 0.9% 100 ML ADDVANT BAG 100 ML IVPB SCH (09:53)
[2018-06-19 10:09] VITALS: BP 149/90
[2018-06-20 13:08] VITALS: BP 121/93
[2018-06-20] MEDS: cefTRIAXone(*) 2 GM VIAL 2 GM in NS(*) 0.9% 100 ML ADDVANT BAG 100 ML IVPB SCH (13:16)
[2018-06-20 14:02] VITALS: BP 132/84
[2018-06-21] MEDS: NS(*) 0.9% 100 ML BAG 100 ML IVPB PRN (09:01)
[2018-06-21] MEDS: cefTRIAXone(*) 2 GM VIAL 2 GM in NS(*) 0.9% 100 ML ADDVANT BAG 100 ML IVPB SCH (09:02)
[2018-06-21 09:03] VITALS: BP 154/84
[2018-06-22 11:32] VITALS: BP 143/92
[2018-06-22] MEDS: cefTRIAXone(*) 2 GM VIAL 2 GM in NS(*) 0.9% 100 ML ADDVANT BAG 100 ML IVPB SCH (11:34)
[2018-06-22] MEDS: NS(*) 0.9% 100 ML BAG 100 ML IVPB PRN (11:34)
[2018-06-22 12:27] VITALS: BP 117/82
[2018-06-23 12:13] VITALS: BP 155/97
[2018-06-23] MEDS: NS(*) 0.9% 100 ML BAG 100 ML IVPB PRN (12:19)
[2018-06-23] MEDS: cefTRIAXone(*) 2 GM VIAL 2 GM in NS(*) 0.9% 100 ML ADDVANT BAG 100 ML IVPB SCH (12:21)
[2018-06-23 13:08] VITALS: BP 132/89
[2018-06-24] MEDS: NS(*) 0.9% 100 ML BAG 100 ML IVPB PRN (09:59)
[2018-06-24] MEDS: cefTRIAXone(*) 2 GM VIAL 2 GM in NS(*) 0.9% 100 ML ADDVANT BAG 100 ML IVPB SCH (09:59)
[2018-06-24 10:00] VITALS: BP 118/77
[2018-06-24 10:28] VITALS: BP 122/83
[2018-06-25] MEDS: NS(*) 0.9% 100 ML BAG 100 ML IVPB PRN (13:09)
[2018-06-25] MEDS: cefTRIAXone(*) 2 GM VIAL 2 GM in NS(*) 0.9% 100 ML ADDVANT BAG 100 ML IVPB SCH (13:11)
[2018-06-25 13:29] LABS: PLATELET COUNT, AUTOMATED 226 K/uL (150-450)
[2018-06-25 13:41] VITALS: BP 131/79
[2018-06-26 12:48] VITALS: BP 139/93
[2018-06-26] MEDS: cefTRIAXone(*) 2 GM VIAL 2 GM in NS(*) 0.9% 100 ML ADDVANT BAG 100 ML IVPB SCH (13:01)
[2018-06-26] MEDS: NS(*) 0.9% 100 ML BAG 100 ML IVPB PRN (13:01)
[2018-06-26 13:28] VITALS: BP 121/84
[2018-06-27 11:53] VITALS: BP 127/90
[2018-06-27] MEDS: cefTRIAXone(*) 2 GM VIAL 2 GM in NS(*) 0.9% 100 ML ADDVANT BAG 100 ML IVPB SCH (12:03)
[2018-06-27 12:54] VITALS: BP 131/83
[2018-06-28] MEDS: cefTRIAXone(*) 2 GM VIAL 2 GM in NS(*) 0.9% 100 ML ADDVANT BAG 100 ML IVPB SCH (11:21)
[2018-06-28] MEDS: NS(*) 0.9% 100 ML BAG 100 ML IVPB PRN (11:22)
[2018-06-28 11:26] VITALS: BP 143/92
[2018-06-28 12:03] VITALS: BP 137/130
[2018-06-29 11:05] VITALS: BP 137/84
[2018-06-29] MEDS: cefTRIAXone(*) 2 GM VIAL 2 GM in NS(*) 0.9% 100 ML ADDVANT BAG 100 ML IVPB SCH (11:14)
[2018-06-29] MEDS: NS(*) 0.9% 100 ML BAG 100 ML IVPB PRN (11:14)
[2018-06-29 11:49] VITALS: BP 121/82
[2018-06-30] MEDS: NS(*) 0.9% 100 ML BAG 100 ML IVPB PRN (09:51)
[2018-06-30 09:52] VITALS: BP 128/96
[2018-06-30] MEDS: cefTRIAXone(*) 2 GM VIAL 2 GM in NS(*) 0.9% 100 ML ADDVANT BAG 100 ML IVPB SCH (09:52)
[2018-06-30 10:49] VITALS: BP 140/102
[2018-07-01] MEDS: NS(*) 0.9% 100 ML BAG 100 ML IVPB PRN (10:50)
[2018-07-01] MEDS: cefTRIAXone(*) 2 GM VIAL 2 GM in NS(*) 0.9% 100 ML ADDVANT BAG 100 ML IVPB SCH (10:50)
[2018-07-01 10:54] VITALS: BP 156/89
[2018-07-01 11:42] VITALS: BP 110/88
[2018-07-02 08:37] VITALS: BP 148/98
[2018-07-02] MEDS: NS(*) 0.9% 100 ML BAG 100 ML IVPB PRN (08:42)
[2018-07-02] MEDS: cefTRIAXone(*) 2 GM VIAL 2 GM in NS(*) 0.9% 100 ML ADDVANT BAG 100 ML IVPB SCH (08:43)
[2018-07-02 08:54] LABS: PLATELET COUNT, AUTOMATED 253 K/uL (150-450)
[2018-07-03 12:54] VITALS: BP 118/92
[2018-07-03] MEDS: cefTRIAXone(*) 2 GM VIAL 2 GM in NS(*) 0.9% 100 ML ADDVANT BAG 100 ML IVPB SCH (13:02)
[2018-07-03] MEDS: NS(*) 0.9% 100 ML BAG 100 ML IVPB PRN (13:02)
[2018-07-03 13:29] VITALS: BP 131/86
[2018-07-04] MEDS: NS(*) 0.9% 100 ML BAG 100 ML IVPB PRN (11:40)
[2018-07-04] MEDS: cefTRIAXone(*) 2 GM VIAL 2 GM in NS(*) 0.9% 100 ML ADDVANT BAG 100 ML IVPB SCH (11:42)
[2018-07-04 11:43] VITALS: BP 130/99
[2018-07-05] MEDS: cefTRIAXone(*) 2 GM VIAL 2 GM in NS(*) 0.9% 100 ML ADDVANT BAG 100 ML IVPB SCH (13:17)
[2018-07-05] MEDS: NS(*) 0.9% 100 ML BAG 100 ML IVPB PRN (13:30)
[2018-07-05 14:19] VITALS: BP 133/88
[~2018-07-06 12:29] MED LIST changes: +ALTEPLASE RECOMB 2 MG VIAL IVP PRN; +CEFT250V37 IV; +DEXTROSE 5%(*) 100 ML BAG 100 ML IVPB PRN; +LACT1CAP6 PO; +NS(*) 0.9% 500 ML BAG 500 ML IV PRN; +WATER FOR INJ,STERILE 20 ML IVP PRN; +[UNRECOGNIZED DRUG - CODE] IM
[2018-07-06 12:35] VITALS: BP 141/85
[2018-07-06] MEDS: NS(*) 0.9% 100 ML BAG 100 ML IVPB PRN (12:43)
[2018-07-06] MEDS: cefTRIAXone(*) 2 GM VIAL 2 GM in NS(*) 0.9% 100 ML ADDVANT BAG 100 ML IVPB SCH (12:43)
[2018-07-06 13:28] VITALS: BP 143/90
[2018-07-07] MEDS: NS(*) 0.9% 100 ML BAG 100 ML IVPB PRN (09:56)
[2018-07-07] MEDS: cefTRIAXone(*) 2 GM VIAL 2 GM in NS(*) 0.9% 100 ML ADDVANT BAG 100 ML IVPB SCH (09:56)
[2018-07-07 10:03] VITALS: BP 109/80
[2018-07-08 10:00] VITALS: BP 130/87
[2018-07-08] MEDS: cefTRIAXone(*) 2 GM VIAL 2 GM in NS(*) 0.9% 100 ML ADDVANT BAG 100 ML IVPB SCH (10:05)
[2018-07-08] MEDS: NS(*) 0.9% 100 ML BAG 100 ML IVPB PRN (10:06)
[2018-07-08 10:46] VITALS: BP 121/85
== END 2018-08-09 ==
LOC: SPU 12:29
PROVIDERS: ATTEND Internal Medicine Infectious Disease
DX: T85.79XA Infection and inflammatory reaction due to other internal prosthetic devices, implants and grafts, initial encounter (principal)
CPT/HCPCS: 36573; 36592; 85025; 86140; 96365; 96366; 96374; C1751; J0696; J1642; J2001; J2997; J7050; 82040; 82247; 82310; 82374; 82435; 82565; 82947; 84075; 84132; 84155; 84295; 84450; 84460; 84520

== ENCOUNTER → 2018-08-10 | Outpatient (CLI) | payer MEDICARE, BC ==
[2016-08-10 12:23] VITALS: BMI 18.0
[~2018-08-10] MED LIST changes: -ALTEPLASE RECOMB 2 MG VIAL IVP PRN; -DEXTROSE 5%(*) 100 ML BAG 100 ML IVPB PRN; -NS(*) 0.9% 500 ML BAG 500 ML IV PRN; -WATER FOR INJ,STERILE 20 ML IVP PRN
[2018-08-10 09:17] LABS: PLATELET COUNT, AUTOMATED 263 K/uL (150-450)
== END ==
LOC: LAB 08:54
PROVIDERS: ATTEND Nurse Practitioner Family
DX: K92.1 Melena (principal)
CPT/HCPCS: 36415; 85025

== ENCOUNTER → 2018-08-16 | Outpatient (CLI) | payer MEDICARE, BC ==
[2016-08-10 12:23] VITALS: BMI 18.0
[2018-08-16 09:47] LABS: PLATELET COUNT, AUTOMATED 265 K/uL (150-450)
== END ==
LOC: LAB 09:22
DX: M47.814 Spondylosis without myelopathy or radiculopathy, thoracic region (principal); T84.63XD Infection and inflammatory reaction due to internal fixation device of spine, subsequent encounter
CPT/HCPCS: 36415; 85025; 85651; 86140

== ENCOUNTER → 2018-08-29 | Outpatient (CLI) | payer MEDICARE, BC ==
[2016-08-10 12:23] VITALS: BMI 18.0
--- NOTE | 2018-08-29 08:40 | RADIOLOGY IMAGING REPORT ---
FACILITY: [facility] - [place] PATIENT NAME: Yessica Arredondo : 1955 MR: [id number] V: [id number] EXAM DATE: ORDERING PHYSICIAN: MAHOGANY SERRATO TECHNOLOGIST: Location: [facility] [place] Patient: Yessica Arredondo : 1955 Visit/Account:[id number] Date of Sevice: 08/29/2018 2 VIEWS CHEST INDICATION: Cough. Right-sided chest pain. COMPARISON: 02/13/2018 FINDINGS: The lungs are clear and are well aerated. No effusion or pneumothorax is seen. Heart size and mediast inal contours are normal. Multilevel degenerative disc disease involves the mid thoracic spine. There has been previous instrumented thoracolumbar fusion procedure performed. This is incompletely evalua quin[place]. Visualized portions appear unchanged from the prior. Anterior cervical fusion procedure has also been performed with anterior instrumentation. This is also incompletely evaluated. Old healed left-s ided rib fractures are seen. IMPRESSION: 1. No radiographic evidence of active disease. Report Dictated By: Russ Gooden at 08/29/2018 8:32 AM Report E-Signed By: Russ Gooden at 08/29/2018 8:35 AM WSN:[id number]
== END ==
LOC: RAD 08:03
PROVIDERS: ATTEND Nurse Practitioner Family
DX: J44.9 Chronic obstructive pulmonary disease, unspecified (principal); R05 Cough
CPT/HCPCS: 71046